=== PATIENT | female | born 1950 | race Caucasian/White ===

== ENCOUNTER 2022-07-29 17:30 | Emergency (ER) | payer MEDICARE, SELFPAY ==
--- NOTE | ~2022-07-29 | CT_ITS ---
EXAMINATION: CT lumbar spine wo con DATE: 07/29/2022 19:02 INDICATION: CHRONIC LOWER BACK PAIN; NKI. HX SURGERY. . TECHNIQUE: Computed tomography (CT) of the lumbar spine was performed without intravenous contrast. A utomated exposure control and iterative reconstruction technique were employed. The dose-length produ ct was 1086.56 mGy-cm. COMPARISON: None. FINDINGS: L4 laminectomy. Posterior fusion hardware extending from L3 through S1, without obvious com plication. Retained right pedicle screw in L5. Interbody devices at L3-4 and L5-S1, in good position. 5 nonrib-bearing lumbar-type vertebral bodies. Pedicles intact. Normal vertebral body alignment. Rosanne tebral body heights preserved. No severe neural foraminal narrowing. No definite central canal narrow ing, noting the canal is obscured by metal artifact at multiple levels. Multilevel degenerative disc disease. Multilevel facet arthropathy. Diverticulosis. Atherosclerotic calcifications. IMPRESSION: No acute fracture or traumatic malalignment in the lumbar spine. No hardware related complication. Reviewed, dictated and finalized at location K. IMPRESSION: No acute fracture or traumatic malalignment in the lumbar spine. No hardware re lated complication.
--- NOTE | ~2022-07-29 | XR_ITS ---
EXAM: XR knee RT 3V DATE: 07/29/2022 19:03 HISTORY: GENERALIZED RIGHT KNEE PAIN. NKI. . COMPARISON: None available. FINDINGS: Decreased mineralization. No fracture or dislocation. No lytic or blastic lesion. Moderate tricompartmental osteoarthritis. Prominent subchondral cysts in the patella. Quadriceps enthesopathy . No erosion or periosteal change. Soft tissues within normal limits. IMPRESSION: No acute osseous finding in the right knee. Reviewed, dictated and finalized at location K.
--- NOTE | ~2022-07-29 | CT_ITS ---
EXAMINATION: CT brain wo con DATE: 07/29/2022 19:02 INDICATION: GENERALIZED WEAKNESS WITH HEADACHE. WEAKNESS SEVERAL WKS . TECHNIQUE: Computed tomography (CT) of the head was performed without intravenous contrast. The mA wa s adjusted according to patient size. Iterative reconstruction technique was employed. The dose-lengt h product was 605.33 mGy-cm. COMPARISON: None. FINDINGS: No acute intracranial hemorrhage or extra-axial fluid collection. No hydrocephalus, mass, or herniation. No acute ischemic infarct. Unremarkable dural venous sinus attenuation. No acute osseous abnormality. Trace right mastoid fluid. Right maxillary mucosal thickening, the remaining aerated spaces are clear . Mild atrophy and chronic white matter change. Atherosclerotic intracranial calcification. Bilateral l ens replacements. IMPRESSION: No acute intracranial process. Reviewed, dictated and finalized at location K.
[2022-07-29 17:30] VITALS: BP 131/66; PULSE 63; RESP 16; TEMP 36.3; O2SAT 100
--- NOTE | 2022-07-29 17:36 | ED.WEAKNESS ---
HPI - Weakness General Chief complaint: Weakness Stated complaint: weakness Time Seen by Provider: 07/29/22 17:34 Source: patient Mode of arrival: EMS Limitations: no limitations History of Present Illness HPI Narrative: 71-year-old female, smoker with a history of dementia, bipolar disorder was brought in by EMS from [facility] for a 1 month history of -- generalized weakness which has gotten worse over the past few days. -- right knee pain -- chronic low back pain. She had a prior history of back surgery. no recent trauma. No fever or chills. No chest pain or shortness of breath no nausea/ vomiting /abdominal pain or diarrhea. MD Complaint: generalized weakness Onset (ago): month(s) Duration: constant Location: generalized Migration: none Severity: mild Relieving factors: none Exacerbating factors: none Associated symptoms: denies other symptoms Related Data Home Medications Medication Instructions Recorded Confirmed amlodipine 10 mg tablet 10 mg PO DAILY 07/29/22 07/29/22 cholecalciferol (vitamin D3) 25 25 mcg PO DAILY 07/29/22 07/29/22 mcg (1,000 unit) capsule (Vitamin D3) divalproex 500 mg tablet,extended 500 mg PO DAILY 07/29/22 07/29/22 release 24 hr donepezil 5 mg tablet 5 mg PO HS 07/29/22 07/29/22 escitalopram oxalate 10 mg tablet 10 mg PO DAILY 07/29/22 07/29/22 memantine 5 mg tablet 5 mg PO QA 07/29/22 07/29/22 risperidone 1 mg tablet 1 mg PO DAILY 07/29/22 07/29/22 risperidone 2 mg tablet 2 mg PO HS 07/29/22 07/29/22 Allergies Allergy/AdvReac Type Severity Reaction Status Date / Time codeine Allergy Unknown Verified 07/29/22 17:37 prednisone Allergy Unknown Verified 07/29/22 17:37 Sulfa (Sulfonamide Allergy Unknown Verified 07/29/22 17:37 Antibiotics) tetracycline Allergy Unknown Verified 07/29/22 17:37 Review of Systems Review of Systems: All systems reviewed & are unremarkable except as noted in HPI and below Constitutional: Constitutional: Reports as per HPI and Reports no additional constitutional complaints Eyes: Eyes: Reports as per HPI and Reports no additional eye complaints ENT: Reports system reviewed and no additional complaints, except as documented and Reports as per HPI Cardiovascular: Cardiovascular: Reports as per HPI and Reports no additional cardiovascular complaints Respiratory: Respiratory: Reports as per HPI and Reports no additional respiratory complaints Gastrointestinal: Gastrointestinal: Reports as per HPI and Reports no additional gastrointestinal complaints Genitourinary: Genitourinary: Reports no additional female genitourinary complaints and Reports as per HPI Musculoskeletal: Musculoskeletal: Reports no additional musculoskeletal complaints and Reports as per HPI Comments: Chronic low back pain and right knee pain. No history of recent trauma. 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 Integumentary/Breasts: Skin/Breast: Reports system reviewed and no additional complaints, except as docu and Reports as per HPI Neurologic: Reports system reviewed and no additional complaints, except as documented and Reports as per HPI Psychiatric: Psychiatric: Reports no additional psychiatric complaints and Reports as per HPI Endocrine: Endocrine: Reports no additional endocrine complaints and Reports as per HPI Hematologic/Lymphatic: Hematologic/Lymphatic: Reports no additional hematologic/lymphatic complaints and Reports as per HPI Allergic/Immunologic: Allergic/Immunologic: Reports no additional allergic/immunologic complaints and Reports as per HPI [facility] Past Medical History Medical History Bipolar 1 disorder Dementia Social History Social History Social History: smoker Exam Const: General: no acute distress Orientation/consciousness: patient oriented x3 Limitations: no limitations HENMT: Head: n
--- NOTE | 2022-07-29 17:50 | ECG_ITS ---
Measurements Intervals [place] Rate: 60 P: 48 MI: 184 QRS: -25 QRSD: 79 T: 11 QT: 382 QTc: 384 Interpretive Statements SINUS RHYTHM POSSIBLE ANTERIOR MYOCARDIAL INFARCTION , PROBABLY OLD [30 ms Q WAVE IN V3/V4, OR R < 0.2 mV IN V4] INFERIOR MYOCARDIAL INFARCTION , PROBABLY OLD [40+ ms Q WAVE AND/OR ST/T ABNORMALITY IN II/aVF] ABNORMAL ECG NO PREVIOUS ECG AVAILABLE FOR COMPARISON Electronically Signed On 07-30-2022 9:00:11 CDT by Jose La M.D.
[2022-07-29 18:05] LABS: Basophils Absolute Auto 0.01 K/mm3 (0.00-0.10); Basophils Percent Auto 0.2 % (0.0-1.0); Eosinophils Percent Auto 1.9 % (1.0-6.0); Hematocrit 40.1 % (35.0-42.0); Hemoglobin 13.6 g/dL (11.7-13.8); Immature Granulocyte Absolute 0.02 K/mm3 (0.00-0.00); Immature Granulocyte Percent A 0.4 % (0.0-0.0); Lymphocytes Percent Auto 18.8 % (18.0-42.0); Mean Corpuscular HGB Conc 33.9 g/dL (32.0-36.0); Mean Corpuscular Hemoglobin 32.2 pg (27.0-31.0); Mean Corpuscular Volume 94.8 fL (78.0-102.0); Mean Platelet Volume 10.1 fl (9.2-11.8); Monocytes Absolute Auto 0.55 K/mm3 (0.10-0.90); Monocytes Percent Auto 10.4 % (2.0-11.0); Neutrophils Absolute Auto 3.6 K/mm3 (1.7-7.2); Neutrophils Percent Auto 68.3 % (50.0-70.0); Platelet Count Result 181 K/mm3 (150-420); Red Blood Count 4.23 M/mm3 (4.20-5.40); Red Cell Distribution Width 12.6 % (11.6-14.4); White Blood Count 5.3 K/mm3 (4.8-10.8)
[2022-07-29 18:06] LABS: Appearance Urine Clear (Clear); Bilirubin Urine Negative (Negative); Blood Urine Negative (Negative); Glucose Urine UA Negative (Negative); Ketones Urine Negative (Negative); Leukocyte Esterase Ur 1+ LEU/UL (Negative); Nitrate Urine Negative (Negative); Protein Urine Negative (Negative); Urobilinogen Urine 0.2 mg/dL (0.2-1.0)
[2022-07-29 18:11] LABS: Color Urine Light Yellow (Yellow)
[2022-07-29 18:12] VITALS: BP 117/70; PULSE 65; RESP 18; O2SAT 97
[2022-07-29 18:12] LABS: Add Urine Microscopic? YES; Bacteria Urine Trace /hpf; RBC Urine 0-2 /hpf (0-2); Squamous Epithelial Cell Urine Rare /hpf (Few); WBC Urine 0-3 /hpf (0-3)
[2022-07-29 18:32] LABS: Alanine Aminotransferase 13 U/L (14-59); Albumin Level 2.8 g/dL (3.4-5.0); Alkaline Phosphatase 72 U/L (46-116); Anion Gap 5 mmol/L (8-16); Aspartate Amino Transferase 13 U/L (15-37); Bilirubin,Total 0.1 mg/dL (0.00-1.00); Blood Urea Nitrogen 15 mg/dL (7-18); Calcium 9.3 mg/dL (8.5-10.1); Carbon Dioxide 30 mmol/L (21-32); Chloride 108 mmol/L (98-108); Estimated CRCL calculation 45 ml/min; Estimated Glomerular Filt Rate > 60; Glucose 136 mg/dL (70-99); Lipase 53 U/L (16-77); Osmolality Calculated 298 mOsm/kg (285-295); Potassium 3.7 mmol/L (3.5-5.1); Sodium 143 mmol/L (136-145); Total Protein 6.5 g/dL (6.4-8.2)
[2022-07-29 18:33] LABS: Troponin I 6.2 ng/L (0.00-60.4)
--- NOTE | 2022-07-29 20:01 | PC.NURSE ---
Dr Peña in to speak c pt. about test results and POC for d/c back to [facility][Note 3] care. 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
[2022-07-29 20:04] VITALS: BP 119/64; PULSE 74; RESP 18; TEMP 36.6; O2SAT 96
== END 2022-07-29 20:16 | disposition home or self-care (01) ==
PROVIDERS: Emergency Provider Internal Medicine Critical Care Medicine
DX: M54.50 Low back pain, unspecified (principal); M25.561 Pain in right knee; R53.1 Weakness; F03.90 Unspecified dementia, unspecified severity, without behavioral disturbance, psychotic disturbance, mood disturbance, and anxiety; F17.200 Nicotine dependence, unspecified, uncomplicated
CPT/HCPCS: 36415; 70450; 72131; 73562; 80053; 81001; 83690; 84443; 84484; 85025; 87086; 93005; 99284

== ENCOUNTER 2022-08-13 12:51 | Inpatient (IN) | payer MEDICARE, SELFPAY ==
[2022-08-13] VITALS (41 sets, daily range): BP systolic 91–109; BP diastolic 47–68; PULSE 48–94; RESP 13–26; TEMP 35.9–37.2; O2SAT 86–96; BMI 23.6
--- NOTE | ~2022-08-13 | XR_ITS ---
XR chest 1V portable 08/13/2022 13:18 Indication: Dyspnea Procedure: AP portable chest Comparison: No prior studies for comparison. Findings: Heart size normal. No focal air space disease, pulmonary edema, pleural effusion or suspect ed pneumothorax. There is right basilar atelectasis. Impression: 1: Right basilar atelectasis. Reviewed, dictated and finalized at location L. Impression: 1: Right basilar atelectasis.
--- NOTE | ~2022-08-13 | US_ITS ---
EXAMINATION:US venous doppler LE BI INDICATION:Pulmonary embolism TECHNIQUE: Multiple grayscale, color flow and Doppler images of the bilateral lower extremity deep ve nous systems were obtained and reviewed. COMPARISON:CT angio chest dated 08/13/2022 FINDINGS: The common femoral, superficial femoral and popliteal veins demonstrate normal respiratory variation, augmentation and compressibility. Color flow is also seen within the posterior tibial, pe roneal, greater saphenous and profunda veins. IMPRESSION: 1: No lower extremity deep venous thrombosis. Reviewed, dictated and finalized at location B.
--- NOTE | ~2022-08-13 | CT_ITS ---
EXAMINATION: CTA chest PE protocol DATE: 08/13/2022 14:39 INDICATION: Dyspnea. TECHNIQUE: Computed tomography angiography (CTA) of the chest was performed with 100 mL Omnipaque-350 intravenous contrast timed to evaluate the pulmonary arteries. Coronal maximum intensity projection 3D-reconstructions were created by the technologist. Automated exposure control and iterative reconst ruction technique were employed. The dose-length product was 483.75 mGy-cm. COMPARISON: Chest single view 08/13/2022 FINDINGS: There are airspace opacities with air bronchograms in the lower lobes, consistent with pneu monia. There is mild atelectasis in right middle lobe. No pleural effusion. The heart size is normal. No pericardial effusion. There is a calcification in the pancreas. There is a pulmonary embolus in t he apical segment right upper lobe. There is an embolus in anterobasal segment right lower lobe. Ther e is an embolus in apicoposterior segment left upper lobe. There is moderate thoracic spondylosis. IMPRESSION: 1. Bilateral acute pulmonary emboli. I called this result to Dr. Fowler. 2. Bilateral lower lobe pneumonia. Reviewed, dictated and finalized at location E.
--- NOTE | 2022-08-13 13:04 | ECG_ITS ---
Measurements Intervals [place] Rate: 71 P: 54 CO: 162 QRS: -12 QRSD: 89 T: 7 QT: 364 QTc: 398 Interpretive Statements SINUS RHYTHM INFERIOR INFARCT, AGE INDETERMINATE BASELINE ARTIFACT- I, II, III, AVR, AVL, AVF ABNORMAL ECG COMPARED TO ECG 07/29/2022 18:08:41 NO SIGNIFICANT CHANGES Electronically Signed On 08-13-2022 13:49:37 CDT by Ozzy Porras D.O.
[2022-08-13] MEDS: IPRATROPIUM 0.5 MG/ALBUTEROL SULFATE 2.5 MG AMPUL.NEB 3 ML INHALATION (13:16)
[2022-08-13] MEDS: ACETAMINOPHEN 500 MG TABLET 1000 MG PO (13:18)
[2022-08-13] MEDS: SODIUM CHLORIDE 0.9% IV 1,000 ML 999 ML IV CONT ×2 (13:20→15:06)
[2022-08-13 13:30] LABS: Base Excess ABG 0.7 mmol/L (0-2); HCO3 ABG 22.7 mmol/L (23-29); Oxygen Content ABG 16.6 %vol (16.0-22.0); Oxygen Saturation ABG 93.3 % (95-97); Oxyhemoglobin 92.2 % (94-100); PCO2 ABG 28.9 mmHg (35-45); PO2 ABG 63.4 mmHg (75-85); Total Hemoglobin 12.8 g/dL (12.0-18.0); pH ABG 7.51 (7.35-7.45)
[2022-08-13 13:32] LABS: Device NASAL CANNULA; Modified Allen's Test Pass; Site Drawn RIGHT RADIAL
[2022-08-13 13:35] LABS: Basophils Absolute Auto 0.02 K/mm3 (0.00-0.10); Basophils Percent Auto 0.2 % (0.0-1.0); Hematocrit 33.3 % (35.0-42.0); Hemoglobin 11.5 g/dL (11.7-13.8); Immature Granulocyte Absolute 0.05 K/mm3 (0.00-0.00); Immature Granulocyte Percent A 0.4 % (0.0-0.0); Lymphocytes Absolute Auto 0.46 K/mm3 (1.10-4.50); Lymphocytes Percent Auto 3.7 % (18.0-42.0); Mean Corpuscular HGB Conc 34.5 g/dL (32.0-36.0); Mean Corpuscular Hemoglobin 32.5 pg (27.0-31.0); Mean Corpuscular Volume 94.1 fL (78.0-102.0); Mean Platelet Volume 9.9 fl (9.2-11.8); Monocytes Absolute Auto 1.21 K/mm3 (0.10-0.90); Monocytes Percent Auto 9.8 % (2.0-11.0); Neutrophils Absolute Auto 10.6 K/mm3 (1.7-7.2); Neutrophils Percent Auto 85.9 % (50.0-70.0); Platelet Count Result 187 K/mm3 (150-420); Red Blood Count 3.54 M/mm3 (4.20-5.40); Red Cell Distribution Width 12.7 % (11.6-14.4); White Blood Count 12.3 K/mm3 (4.8-10.8)
[2022-08-13 13:50] LABS: INR 1.1; Prothrombin Time 12.2 Seconds (9.50-12.10)
[2022-08-13 13:53] LABS: D Dimer 1.59 mg/L (0.19-0.50)
[2022-08-13 14:02] LABS: Alanine Aminotransferase 10 U/L (14-59); Albumin Level 2.4 g/dL (3.4-5.0); Alkaline Phosphatase 80 U/L (46-116); Anion Gap 12 mmol/L (8-16); Aspartate Amino Transferase < 10 U/L (15-37); Bilirubin,Total 0.4 mg/dL (0.00-1.00); Blood Urea Nitrogen 18 mg/dL (7-18); Calcium 9.2 mg/dL (8.5-10.1); Carbon Dioxide 24 mmol/L (21-32); Chloride 103 mmol/L (98-108); Estimated CRCL calculation 34 ml/min; Estimated Glomerular Filt Rate 46; Glucose 112 mg/dL (70-99); Magnesium 1.7 mg/dL (1.8-2.4); NT Pro B Type Natriuretic Pept 366 pg/mL (0-125); Osmolality Calculated 290 mOsm/kg (285-295); Potassium 3.8 mmol/L (3.5-5.1); Sodium 139 mmol/L (136-145); Total Protein 6.7 g/dL (6.4-8.2); Troponin I 12.5 ng/L (0.00-60.4)
[2022-08-13 14:26] LABS: Influenza A QL RT-PCR Negative (Negative); Influenza B QL RT-PCR Negative (Negative); SARS-CoV-2 RNA PCR Negative (Negative)
[2022-08-13 14:30] LABS: RSV RNA, RT-PCR Negative (Negative)
--- NOTE | 2022-08-13 14:58 | ED.SOB ---
HPI - SOB/Dyspnea General Chief Complaint: Shortness of Breath/Dyspnea Stated Complaint: weakness past 4 days Time Seen by Provider: 08/13/22 13:02 Source: patient and EMS Mode of arrival: EMS Limitations: physical limitation and dementia History of Present Illness HPI Narrative: this is a 71-year-old female from [facility] with a history of dementia hypertension depression that presents via EMS with some increased shortness of breath that started earlier today, per EMS her O2 sats were in the upper 80s around 88 and that was with 3L of oxygen, the patient does not require oxygen at the facility, currently the patient is mildly short of breath but there is no cough no fever chills no chest pain or chest pressure, the patient has chronic back pain. Otherwise there is no fever chills no nausea vomiting no abdominal pain. MD elicited complaint: shortness of breath Onset (ago): hour(s) Severity: moderate Exacerbating factors: exertion Related Data Home Medications Medication Instructions Recorded Confirmed amlodipine 10 mg tablet 10 mg PO DAILY 07/29/22 08/13/22 cholecalciferol (vitamin D3) 25 25 mcg PO DAILY 07/29/22 08/13/22 mcg (1,000 unit) capsule (Vitamin D3) divalproex 500 mg tablet,extended 500 mg PO DAILY 07/29/22 08/13/22 release 24 hr donepezil 5 mg tablet 5 mg PO HS 07/29/22 08/13/22 escitalopram oxalate 10 mg tablet 10 mg PO DAILY 07/29/22 08/13/22 memantine 5 mg tablet 5 mg PO QA 07/29/22 08/13/22 risperidone 1 mg tablet 1 mg PO DAILY 07/29/22 08/13/22 risperidone 2 mg tablet 2 mg PO HS 07/29/22 08/13/22 Allergies Allergy/AdvReac Type Severity Reaction Status Date / Time codeine Allergy Unknown Verified 07/29/22 17:37 prednisone Allergy Unknown Verified 07/29/22 17:37 Sulfa (Sulfonamide Allergy Unknown Verified 07/29/22 17:37 Antibiotics) tetracycline Allergy Unknown Verified 07/29/22 17:37 Review of Systems Review of Systems: All systems reviewed & are unremarkable except as noted in HPI and below PMFSH Past Medical History Medical History Bipolar 1 disorder Dementia Social History Social History Social History: smoker Exam Const: General: ill appearing Nutritional Appearance: well nourished Limitations: physical limitations HENMT: Head: normal to inspection Eyes: Conjunctivae: conjunctivae normal Pupils: Equal, round and reactive pupils present EOM: EOMs intact bilaterally Direct Ophthalmoscopy: no photophobia Neck: Neck: normal visual inspection Chest: Chest palpation & inspection: normal inspection of the chest Resp: Effort & Inspection: normal respiratory effort Cardio: Rate: regular rate Rhythm: regular rhythm GI: GI Palp: Yes Soft to palpation : General: Yes bladder normal to palpation Urinary Catheter: Urinary Catheter: patent and draining Skin: General skin exam: normal color Rashes: no rashes Wounds: no wounds Neuro: General: moves all extremities and no focal motor deficits Cranial nerves: Yes Nystagmus not present Speech: normal speech Extrem: General: normal to inspection Psych: Attitude: cooperative Course Course Emergency Course: Patient pressure at around 100 to 107 systolic had elevated D-dimer and CTA performed shows that she has pulmonary embolism along with pneumonia. The patient did receive a L of normal saline and is currently receiving her 2nd L of normal saline, patient was started on Eliquis some initial therapeutic dose of 10mg p.o. and also IV Levaquin for pneumonia. Her white blood cell count is 12.3 BNP is 366 and the CTA report was called to me by radiologist at [facility]. Patient otherwise is comfortable sats around 92 on 6L of oxygen. Vital Signs Vital signs: Vital Signs Temperature 37.2 C 08/13/22 12:50 Pulse Rate 79 08/13/22 12:50 Respiratory Rate 24 H 08/13/22 12:50
[2022-08-13] MEDS: APIXABAN 2.5 MG TABLET 10 MG PO (15:04)
[2022-08-13] MEDS: levoFLOXacin 500 MG/D5W 100 ML 500 MG/100 ML BAG 100 MG IVPB (15:08)
--- NOTE | 2022-08-13 15:55 | ADMGEN ---
This patient, Daphnie MARIE, was admitted to 2nd Floor Room 207-2. Patient/family oriented to hospital policies and general routines including ID bracelet, bed and alarms, visiting hours, pain management, procedures, bathroom and other care routines, personal items, smoking policy, room service/diet, and visiting hours. Information on how to activate the Rapid Response Team has been discussed. Patient/Family are encouraged to report perceived risks to care and to ask questions if they do not understand what they are told or what they should do.
[2022-08-13] MEDS: DONEPEZIL HCL 5 MG TABLET PO (20:10)
[2022-08-13] MEDS: risperiDONE 1 MG TABLET 2 MG PO (20:10)
[2022-08-13] MEDS: ACETAMINOPHEN 325 MG TABLET 650 MG PO (20:10)
[2022-08-14] VITALS (7 sets, daily range): BP systolic 102–120; BP diastolic 52–57; PULSE 41–96; RESP 16–17; TEMP 35.9–36.3; O2SAT 92–95
[2022-08-14 05:27] LABS: Basophils Absolute Auto 0.01 K/mm3 (0.00-0.10); Basophils Percent Auto 0.1 % (0.0-1.0); Hematocrit 33.3 % (35.0-42.0); Hemoglobin 10.9 g/dL (11.7-13.8); Immature Granulocyte Absolute 0.07 K/mm3 (0.00-0.00); Immature Granulocyte Percent A 0.7 % (0.0-0.0); Lymphocytes Absolute Auto 0.87 K/mm3 (1.10-4.50); Lymphocytes Percent Auto 8.3 % (18.0-42.0); Mean Corpuscular HGB Conc 32.7 g/dL (32.0-36.0); Mean Corpuscular Hemoglobin 31.5 pg (27.0-31.0); Mean Corpuscular Volume 96.2 fL (78.0-102.0); Mean Platelet Volume 9.9 fl (9.2-11.8); Monocytes Absolute Auto 0.93 K/mm3 (0.10-0.90); Monocytes Percent Auto 8.9 % (2.0-11.0); Neutrophils Absolute Auto 8.5 K/mm3 (1.7-7.2); Platelet Count Result 173 K/mm3 (150-420); Red Blood Count 3.46 M/mm3 (4.20-5.40); Red Cell Distribution Width 13.1 % (11.6-14.4); White Blood Count 10.4 K/mm3 (4.8-10.8)
[2022-08-14 05:45] LABS: Anion Gap 8 mmol/L (8-16); Blood Urea Nitrogen 14 mg/dL (7-18); Calcium 9.3 mg/dL (8.5-10.1); Carbon Dioxide 27 mmol/L (21-32); Chloride 108 mmol/L (98-108); Estimated CRCL calculation 42 ml/min; Estimated Glomerular Filt Rate 60; Glucose 86 mg/dL (70-99); Osmolality Calculated 295 mOsm/kg (285-295); Potassium 3.5 mmol/L (3.5-5.1); Sodium 143 mmol/L (136-145)
[2022-08-14 09:30] LABS: Appearance Urine Clear (Clear); Bilirubin Urine Negative (Negative); Blood Urine Negative (Negative); Color Urine Light Yellow (Yellow); Glucose Urine UA Negative (Negative); Ketones Urine Negative (Negative); Leukocyte Esterase Ur 1+ LEU/UL (Negative); Nitrate Urine Negative (Negative); Protein Urine Negative (Negative); Specific Grav Ur <= 1.005 (1.010-1.020); Urobilinogen Urine 0.2 mg/dL (0.2-1.0); pH Urine 6.5 (5.0-8.0)
[2022-08-14] MEDS: SACCHAROMYCES BOULARDII 250 MG CAPSULE PO ×2 (09:31→16:12)
[2022-08-14] MEDS: risperiDONE 1 MG TABLET PO (09:31)
[2022-08-14] MEDS: ESCITALOPRAM OXALATE 10 MG TABLET PO (09:32)
[2022-08-14] MEDS: amLODIPine BESYLATE 5 MG TABLET 10 MG PO (09:32)
[2022-08-14] MEDS: DIVALPROEX SODIUM ER 500 MG TAB.24H PO (09:32)
[2022-08-14] MEDS: CHOLECALCIFEROL 1,000 UNITS TABLET 1000 UNITS PO (09:32)
[2022-08-14] MEDS: MEMANTINE 5 MG TABLET PO (09:33)
[2022-08-14] MEDS: APIXABAN 2.5 MG TABLET 10 MG PO ×2 (09:33→20:24)
[2022-08-14 09:36] LABS: Amphetamine Screen Urine Negative (Negative); Barbiturate Screen Urine Negative (Negative); Benzodiazepines Screen Urine Negative (Negative); Cannabinoid Screen Urine Negative (Negative); Cocaine Screen Urine Negative (Negative); Methadone Screen Urine Negative (Negative); Opiate Screen Urine Negative (Negative); Phencyclidine Screen Urine Negative (Negative)
[2022-08-14 09:36] LABS: Add Urine Microscopic? YES; Bacteria Urine 1+ /hpf; RBC Urine None seen /hpf (0-2); Squamous Epithelial Cell Urine Few /hpf (Few)
--- NOTE | 2022-08-14 09:55 | PM.IMHP ---
H&P: HPI History of Present Illness Date/Time: 08/14/22 09:55 Chief Complaint: Dyspnea Narrative: This 71 year old female patient with PMH of dementia, HTN, and depression was admitted to the inpatient unit at [facility] after presenting to the ER via EMS with dyspnea, and requiring Oxygen as high as 6L. Pt. endorses a three week history of generally not feeling well and today she felt worse. She was found with her sats in the upper 80s. She denies any chills or sweats and no CP, N/V/D/lightheadedness, headache or dizziness. Review of Systems Review of Systems: All systems reviewed & are unremarkable except as noted in HPI and below PMFSH Past Medical History Medical History Bipolar 1 disorder Dementia Social History Social History Social History: smoker Meds Home Medications and Allergies Home Medications Medication Instructions Recorded Confirmed Type amlodipine 10 mg tablet 10 mg PO DAILY 07/29/22 08/13/22 History cholecalciferol (vitamin D3) 25 25 mcg PO DAILY 07/29/22 08/13/22 History mcg (1,000 unit) capsule (Vitamin D3) divalproex 500 mg tablet,extended 500 mg PO DAILY 07/29/22 08/13/22 History release 24 hr donepezil 5 mg tablet 5 mg PO HS 07/29/22 08/13/22 History escitalopram oxalate 10 mg tablet 10 mg PO DAILY 07/29/22 08/13/22 History memantine 5 mg tablet 5 mg PO QAM 07/29/22 08/13/22 History risperidone 1 mg tablet 1 mg PO DAILY 07/29/22 08/13/22 History risperidone 2 mg tablet 2 mg PO HS 07/29/22 08/13/22 History Allergies Allergy/AdvReac Type Severity Reaction Status Date / Time codeine Allergy Unknown Verified 07/29/22 17:37 prednisone Allergy Unknown Verified 07/29/22 17:37 Sulfa (Sulfonamide Allergy Unknown Verified 07/29/22 17:37 Antibiotics) tetracycline Allergy Unknown Verified 07/29/22 17:37 Vital Signs Vital Signs - 24 hr 08/13/22 12:50 08/13/22 13:17 08/13/22 13:28 Temperature 99.0 F Pulse Rate 79 71 81 Respiratory Rate 24 H 20 20 Blood Pressure 107/56 L Pulse Oximetry 87 L 91 91 Oxygen Delivery Nasal Cannula Oxygen Flow Rate 6 6 08/13/22 13:03 08/13/22 13:15 08/13/22 13:16 Temperature Pulse Rate 81 80 Respiratory Rate 18 26 H Blood Pressure 106/48 L 106/64 Pulse Oximetry 89 L 92 91 Oxygen Delivery Oxygen Flow Rate 08/13/22 12:50 08/13/22 13:10 08/13/22 13:57 Temperature 99 F Pulse Rate 83 78 70 Respiratory Rate 18 Blood Pressure 107/56 L Pulse Oximetry 86 L Oxygen Delivery Nasal Cannula Oxygen Flow Rate 3 08/13/22 13:10 08/13/22 13:17 08/13/22 13:30 Temperature Pulse Rate 71 73 Respiratory Rate 22 H 21 H Blood Pressure Pulse Oximetry 90 91 96 Oxygen Delivery Nasal Cannula Oxygen Flow Rate 6 08/13/22 13:36 08/13/22 13:45 08/13/22 13:46 Temperature 98.8 F Pulse Rate 72 70 67 Respiratory Rate 21 H 22 H 20 Blood Pressure 108/50 L 109/59 L 102/51 L Pulse Oximetry 95 95 94 Oxygen Delivery Oxygen Flow Rate 08/13/22 13:47 08/13/22 14:00 08/13/22 14:01 Temperature Pulse Rate 68 70 69 Respiratory Rate 22 H 23 H 23 H Blood Pressure 105/68 Pulse Oximetry 94 90 90 Oxygen Delivery Oxygen Flow Rate 08/13/22 14:02 08/13/22 14:10 08/13/22 14:15 Temperature Pulse Rate 73 94 72 Respiratory Rate 18 16 20 Blood Pressure 105/68 Pulse Oximetry 90 90 92 Oxygen Delivery Oxygen Flow Rate 08/13/22 14:16 08/13/22 14:36 08/13/22 14:39 Temperature Pulse Rate 77 65 64 Respiratory Rate 19 20 18 Blood Pressure 101/62 100/51 L Pulse Oximetry 91 92 93 Oxygen Delivery Oxygen Flow Rate 08/13/22 14:40 08/13/22 14:45 08/13/22 14:46 Temperature Pulse Rate 65 64 62 Respiratory Rate 13 17 18 Blood Pressure 98/47 L Pulse Oximetry 92 90 91 Oxygen Delivery Oxygen Flow Rate 08/13/22 14:55 0
[2022-08-14] MEDS: levoFLOXacin 250 MG/D5W 50 ML 250 MG/50 ML BAG 50 MG IVPB (16:10)
[2022-08-14] MEDS: ACETAMINOPHEN 325 MG TABLET 650 MG PO (16:21)
[2022-08-14] MEDS: DONEPEZIL HCL 5 MG TABLET PO (20:24)
[2022-08-14] MEDS: risperiDONE 1 MG TABLET 2 MG PO (20:25)
[2022-08-15] VITALS: BP 111/61; PULSE 41; PULSE 54; RESP 18; TEMP 36.6; O2SAT 92
[2022-08-15 03:25] VITALS: BP 110/60; PULSE 45; RESP 18; TEMP 36.6; O2SAT 93
[2022-08-15 05:12] LABS: Basophils Absolute Auto 0.02 K/mm3 (0.00-0.10); Basophils Percent Auto 0.3 % (0.0-1.0); Eosinophils Absolute Auto 0.03 K/mm3 (0.02-0.50); Eosinophils Percent Auto 0.4 % (1.0-6.0); Hematocrit 33.4 % (35.0-42.0); Immature Granulocyte Absolute 0.05 K/mm3 (0.00-0.00); Immature Granulocyte Percent A 0.7 % (0.0-0.0); Lymphocytes Absolute Auto 1.16 K/mm3 (1.10-4.50); Lymphocytes Percent Auto 15.3 % (18.0-42.0); Mean Corpuscular HGB Conc 32.9 g/dL (32.0-36.0); Mean Corpuscular Hemoglobin 31.6 pg (27.0-31.0); Mean Platelet Volume 9.8 fl (9.2-11.8); Monocytes Absolute Auto 0.47 K/mm3 (0.10-0.90); Monocytes Percent Auto 6.2 % (2.0-11.0); Neutrophils Absolute Auto 5.8 K/mm3 (1.7-7.2); Neutrophils Percent Auto 77.1 % (50.0-70.0); Platelet Count Result 205 K/mm3 (150-420); Red Blood Count 3.48 M/mm3 (4.20-5.40); Red Cell Distribution Width 13.1 % (11.6-14.4); White Blood Count 7.6 K/mm3 (4.8-10.8)
[2022-08-15 05:29] LABS: Alanine Aminotransferase 10 U/L (14-59); Albumin Level 1.9 g/dL (3.4-5.0); Alkaline Phosphatase 71 U/L (46-116); Anion Gap 10 mmol/L (8-16); Aspartate Amino Transferase < 10 U/L (15-37); Bilirubin,Total 0.1 mg/dL (0.00-1.00); Blood Urea Nitrogen 14 mg/dL (7-18); Calcium 8.8 mg/dL (8.5-10.1); Carbon Dioxide 28 mmol/L (21-32); Chloride 104 mmol/L (98-108); Estimated CRCL calculation 46 ml/min; Estimated Glomerular Filt Rate > 60; Glucose 79 mg/dL (70-99); Osmolality Calculated 293 mOsm/kg (285-295); Potassium 3.6 mmol/L (3.5-5.1); Sodium 142 mmol/L (136-145); Total Protein 6.1 g/dL (6.4-8.2)
[2022-08-15 06:03] VITALS: O2SAT 92
[2022-08-15 08:00] VITALS: BP 120/55; PULSE 58; PULSE 68; RESP 16; TEMP 35.8; O2SAT 93
[2022-08-15] MEDS: CHOLECALCIFEROL 1,000 UNITS TABLET 1000 UNITS PO (08:35)
[2022-08-15] MEDS: APIXABAN 2.5 MG TABLET 10 MG PO ×2 (08:35→20:33)
[2022-08-15] MEDS: SACCHAROMYCES BOULARDII 250 MG CAPSULE PO ×2 (08:35→17:08)
[2022-08-15] MEDS: MEMANTINE 5 MG TABLET PO (08:35)
[2022-08-15] MEDS: amLODIPine BESYLATE 5 MG TABLET 10 MG PO (08:36)
[2022-08-15] MEDS: DIVALPROEX SODIUM ER 500 MG TAB.24H PO (08:36)
[2022-08-15] MEDS: ESCITALOPRAM OXALATE 10 MG TABLET PO (08:37)
[2022-08-15] MEDS: risperiDONE 1 MG TABLET PO (08:37)
--- NOTE | 2022-08-15 09:08 | PC.NURSE ---
Risk Advisor discontinued O2 via n/c at 1 L. Patient still has SPO2 at 94% on room air after 30 minutes without O2. Will continue to monitor.
[2022-08-15 12:00] VITALS: BP 105/52; PULSE 58; PULSE 60; RESP 16; TEMP 35.9; O2SAT 93
--- NOTE | 2022-08-15 14:30 | PC.NURSE ---
SPO2 remains above 90 on room air, even when patient is at rest.
[2022-08-15] MEDS: levoFLOXacin 250 MG/D5W 50 ML 250 MG/50 ML BAG 50 MG IVPB (14:34)
--- NOTE | 2022-08-15 14:48 | PC.NURSE ---
Discontinued IV fluids per [employer] ADMINISTRATOR orders.
--- NOTE | 2022-08-15 15:05 | WPDPN ---
Progress Note: A&P Assessment and Plan (1) Pulmonary embolism: Qualifiers: Acute cor pulmonale presence: without acute cor pulmonale Chronicity: acute Pulmonary embolism type: unspecified Qualified Code(s): I26.99 - Other pulmonary embolism without acute cor pulmonale Code(s): I26.99 - Other pulmonary embolism without acute cor pulmonale Status: Acute Assessment and Plan: - Supplemental oxygen, wean as tolerated WEANed off of oxgen - Continue Eliquis at loading dose of 10 mg BID and transition to 5 mg BID - Venous dopplers negative . - ECHO pending may have to be completed as a outpatient - Monitor closely (2) Community acquired pneumonia: Qualifiers: Laterality: unspecified laterality Qualified Code(s): J18.9 - Pneumonia, unspecified organism Code(s): J18.9 - Pneumonia, unspecified organism Status: Acute Assessment and Plan: - Continue IV abx of Levaquin and Rocephin Q24 hrs. - Monitor SPO2 and provide Supplemental oxygen, weaning as tolerable. (3) Dementia: Code(s): F03.90 - Unspecified dementia, unspecified severity, without behavioral disturbance, psychotic disturbance, mood disturbance, and anxiety Status: Chronic Assessment and Plan: - COntinue Namenda and Aricept - Provide for safety. - Fall precautions - PT and OT patient has been cleared by physical therapy (4) Bipolar 1 disorder: Code(s): F31.9 - Bipolar disorder, unspecified Status: Chronic Assessment and Plan: - Continue Risperdal, Lexapro and Depakote Plan Plan for discharge in the morning back home. Subjective Date/time seen: 08/15/22 15:05 Interval history: Patient has been weaned off of oxygen and she is sitting in the bed. Patient denies any shortness of breath at this time and she is able to eat and drink without difficulties. She has remained afebrile. At this time WBC is within normal limits and her labs are looking good. Patient has been weaned today off of oxygen and we will plan for discharge in the morning. Exam Const: General: comfortable, no acute distress, ill appearing and well nourished Nutritional Appearance: well nourished Limitations: physical limitations Other: Sitting up in bed in no acute distress at this time. HENMT: Head: normal to inspection Face/Nose/Sinus: Normal nares present Eyes: General: appearance normal, both eyes and all related structures Conjunctivae: conjunctivae normal Pupils: Equal, round and reactive pupils present EOM: EOMs intact bilaterally Direct Ophthalmoscopy: no photophobia Neck: Neck: normal visual inspection, supple and no JVD Lymphatic: lymphadenopathy not noted Chest: Chest palpation & inspection: normal inspection of the chest Other: Not tender to palpation Resp: Effort & Inspection: normal respiratory effort Auscultation: crackles bilateral in the lower lung hannah Cardio: Rate: regular rate Rhythm: regular rhythm Heart sounds: no gallops, no murmurs and no rubs GI: Inspection: non-distended Auscultation: normal bowel sounds Skin: General skin exam: normal color, no rashes or lesions noted, No lesion and No rashes Lesions: no lesions noted Rashes: no rashes and no rashes noted Wounds: no wounds Neuro: General: moves all extremities and no focal motor deficits Cranial nerves: Yes Equal, round and reactive pupils present and Yes Nystagmus not present Speech: normal speech Motor exam (neuro): Abnormal motor strength present (Generalized, non-focal weakness) Sensory Exam: normal sensation Extrem: General: normal to inspection, no edema and pedal edema (trace) bilaterally Psych: Mental Status: mental status grossly normal (forgetful) Affect: normal affect Attitude: cooperative Objective Data Vital Signs Vital Signs: Vital Signs - 24 hr 08/14/22 16:00 08/14/22 16:00 08/14/22 20:00 Temperature 97.4 F L Pulse Rate 52 L 70 42 L Respiratory Rate 17 Blood
[2022-08-15 16:00] VITALS: BP 103/50; PULSE 52; RESP 16; TEMP 36.1; O2SAT 92
[2022-08-15] MEDS: ACETAMINOPHEN 325 MG TABLET 650 MG PO (20:33)
[2022-08-15] MEDS: DONEPEZIL HCL 5 MG TABLET PO (20:34)
[2022-08-15] MEDS: risperiDONE 1 MG TABLET 2 MG PO (20:35)
[2022-08-16] VITALS: BP 101/44; PULSE 50; RESP 16; TEMP 36.6; O2SAT 90
[2022-08-16 08:00] VITALS: BP 112/59; PULSE 52; RESP 16; TEMP 36.7; O2SAT 92; O2SAT 93
[2022-08-16] MEDS: ACETAMINOPHEN 325 MG TABLET 650 MG PO (08:13)
[2022-08-16] MEDS: SACCHAROMYCES BOULARDII 250 MG CAPSULE PO (08:14)
[2022-08-16] MEDS: DIVALPROEX SODIUM ER 500 MG TAB.24H PO (08:14)
[2022-08-16] MEDS: risperiDONE 1 MG TABLET PO (08:15)
[2022-08-16] MEDS: APIXABAN 2.5 MG TABLET 10 MG PO (08:15)
[2022-08-16] MEDS: amLODIPine BESYLATE 5 MG TABLET 10 MG PO (08:16)
[2022-08-16] MEDS: CHOLECALCIFEROL 1,000 UNITS TABLET 1000 UNITS PO (08:16)
[2022-08-16] MEDS: ESCITALOPRAM OXALATE 10 MG TABLET PO (08:17)
[2022-08-16] MEDS: MEMANTINE 5 MG TABLET PO (08:17)
--- NOTE | 2022-08-16 08:57 | PM.DS ---
DS: Admitting Diagnosis Discharge Date 08/16/2022 Admitting Diagnosis Pneumonia, Pulmonary Embolus DS: Discharge Diagnosis Discharge Diagnosis (1) Pulmonary embolism: Qualifiers: Acute cor pulmonale presence: without acute cor pulmonale Chronicity: acute Pulmonary embolism type: unspecified Qualified Code(s): I26.99 - Other pulmonary embolism without acute cor pulmonale Code(s): I26.99 - Other pulmonary embolism without acute cor pulmonale Status: Acute Assessment and Plan: - Supplemental oxygen, wean as tolerated WEANed off of oxgen - Continue Eliquis at loading dose of 10 mg BID and transition to 5 mg BID - Venous dopplers negative . - ECHO pending may have to be completed as a outpatient - Monitor closely (2) Community acquired pneumonia: Qualifiers: Laterality: unspecified laterality Qualified Code(s): J18.9 - Pneumonia, unspecified organism Code(s): J18.9 - Pneumonia, unspecified organism Status: Acute Assessment and Plan: - Continue IV abx of Levaquin and Rocephin Q24 hrs. - Monitor SPO2 and provide Supplemental oxygen, weaning as tolerable. (3) Dementia: Code(s): F03.90 - Unspecified dementia, unspecified severity, without behavioral disturbance, psychotic disturbance, mood disturbance, and anxiety Status: Chronic Assessment and Plan: - COntinue Namenda and Aricept - Provide for safety. - Fall precautions - PT and OT patient has been cleared by physical therapy (4) Bipolar 1 disorder: Code(s): F31.9 - Bipolar disorder, unspecified Status: Chronic Assessment and Plan: - Continue Risperdal, Lexapro and Depakote Plan Plan for discharge in the morning back home. DS: Summary Hospital Course Reason for hospitalization: Pulmonary Embolus, Pneumonia Hospital Course: This is a 71-year-old female from retirement that comes in with increased hypoxia requiring oxygen patient was found to have bilateral pneumonia as well as some pulmonary embolisms. Patient was started on oral Eliquis and some IV antibiotics of Rocephin and azithromycin as well as she was started on some breathing treatments and given some IV steroids. Patient was eventually weaned off of oxygen she continued the oral anticoagulation inhalers have been given as well as oral antibiotics was started patient has continued to improve where she is getting it in she is ambulating decreased shortness of breath noted patient states she is feeling better highly anticipating discharge. Patient has remained afebrile she is eating and drinking without difficulty although patient does have some dementia noted as this may have increased due to her acute pneumonia and blood clots at this time we will discharge patient back to retirement with oral medication which she should follow-up with the primary care provider within 5-7 days. Time Spent with Patient Time attestation: Total time spent providing and/or coordinating discharge services: Exam Const: General: comfortable, no acute distress, ill appearing and well nourished Nutritional Appearance: well nourished Limitations: physical limitations Other: Sitting up in bed in no acute distress at this time. HENMT: Head: normal to inspection Face/Nose/Sinus: Normal nares present Eyes: General: appearance normal, both eyes and all related structures Conjunctivae: conjunctivae normal Pupils: Equal, round and reactive pupils present EOM: EOMs intact bilaterally Direct Ophthalmoscopy: no photophobia Neck: Neck: normal visual inspection, supple and no JVD Lymphatic: lymphadenopathy not noted Chest: Chest palpation & inspection: normal inspection of the chest Other: Not tender to palpation Resp: Effort & Inspection: normal respiratory effort Auscultation: crackles bilateral in the lower lung hannah Other: noted on lower left side although pt does not take deep breaths even when requested Cardio:
--- NOTE | 2022-08-16 12:45 | PC.NURSE ---
Discharge instructions and medications given to Aylin from [facility]. Aylin voiced understanding. Patient left unit in w/c, accompanied by publicity writer. Patient left hospital property in privately owned vehicle. Personal belongings sent home with patient. IV access removed prior to discharge.
--- NOTE | 2022-08-17 12:44 | PC.NURSE ---
Nursing Home care staff states they received and understood the discharge instructions.
== END 2022-08-16 12:45 | DRG 175 ==
LOC: CHSED 15:04 → CHS2ND 15:30
PROVIDERS: Nurse Practitioner Adult Health; Nurse Practitioner Family; Admitting Provider Internal Medicine; Emergency Provider Emergency Medicine; PCP Pediatrics; Visit Provider Internal Medicine
DX: I26.99 Other pulmonary embolism without acute cor pulmonale (principal); J18.9 Pneumonia, unspecified organism; I10 Essential (primary) hypertension; F03.90 Unspecified dementia, unspecified severity, without behavioral disturbance, psychotic disturbance, mood disturbance, and anxiety; Z20.822 Contact with and (suspected) exposure to COVID-19; Z79.899 Other long term (current) drug therapy; F31.9 Bipolar disorder, unspecified
CPT/HCPCS: 36415; 36600; 71045; 71275; 80048; 80053; 80307; 81001; 82805; 83735; 83880; 84484; 85025; 85380; 85610; 85730; 87040; 87086; 87637; 93005; 93970; 96361; 96374; 97161; 97530; 99285; A9270; J0696; J1956; J7030; Q9967

== ENCOUNTER 2022-09-21 13:17 | Outpatient (CLI) | payer MEDICARE, SELFPAY ==
--- NOTE | ~2022-09-21 | XR_ITS ---
EXAMINATION: XR chest 2V Exam Date/Time: 09/21/2022 13:48 CDT HISTORY: HTN/PULMONARY EMBOLISM Comparison: 08/13/2022. RESULT: Lines, tubes, and devices: Partially visualized lumbar fusion hardware. Lungs and pleura: Clear. Cardiomediastinal silhouette: Stable. Other: No acute osseous or upper abdominal finding. IMPRESSION: No acute cardiopulmonary process. Reviewed, dictated and finalized at location K.
[2022-09-21 13:35] LABS: Basophils Absolute Auto 0.01 K/mm3 (0.00-0.10); Basophils Percent Auto 0.2 % (0.0-1.0); Eosinophils Absolute Auto 0.05 K/mm3 (0.02-0.50); Eosinophils Percent Auto 0.9 % (1.0-6.0); Hematocrit 36.7 % (35.0-42.0); Hemoglobin 12.1 g/dL (11.7-13.8); Immature Granulocyte Absolute 0.02 K/mm3 (0.00-0.00); Immature Granulocyte Percent A 0.4 % (0.0-0.0); Lymphocytes Absolute Auto 1.38 K/mm3 (1.10-4.50); Lymphocytes Percent Auto 25.7 % (18.0-42.0); Mean Corpuscular Hemoglobin 32.4 pg (27.0-31.0); Mean Corpuscular Volume 98.4 fL (78.0-102.0); Mean Platelet Volume 9.7 fl (9.2-11.8); Monocytes Percent Auto 5.6 % (2.0-11.0); Neutrophils Absolute Auto 3.6 K/mm3 (1.7-7.2); Neutrophils Percent Auto 67.2 % (50.0-70.0); Platelet Count Result 169 K/mm3 (150-420); Red Blood Count 3.73 M/mm3 (4.20-5.40); Red Cell Distribution Width 13.4 % (11.6-14.4); White Blood Count 5.4 K/mm3 (4.8-10.8)
--- NOTE | 2022-09-21 13:48 | ECHO_ITS ---
Patient Info Name: Daphnie MARIE Age: 72 years : 1950 Gender: Female Ht: 64 in Wt: 135 lbs BSA: 1.67 m2 HR: 58 bpm BP: 131 / 86 mmHg Heart Rhythm: Sinus Rhythm Technical Quality: Fair Exam Date: 09/21/2022 1:47 PM Exam Location: [facility] Patient Status: Outpatient Admit Date: 09/21/2022 Staff Ordering Physician: Denny Cardenas MD Medical Doctor Md/Medical Director: Laura Renee RDCS Attending Provider: Denny Cardenas MD Referring Physician: Theresa WILEY; Exam Type: CA echo doppler color flow Study Info Indications - HTN/PUL HYPERTENSION Complete two-dimensional, color flow and Doppler transthoracic echocardiogram is performed. Summary 1. Complete two-dimensional, color flow and Doppler transthoracic echocardiogram is performed. 2. Left ventricular chamber dimension is normal. 3. Left ventricular systolic function is normal, estimated at 60-65%. 4. Ventricular septum is sigmoid shaped. No LVOT obstruction. 5. The left ventricular diastolic function is grade I diastolic dysfunction. 6. E/e' 6 is not elevated. 7. There is mild aortic valve sclerosis. 8. There is mild aortic valve regurgitation. 9. The mitral valve has mildly calcified annulus. 10. There is mild mitral valve regurgitation. 11. No pulmonary hypertension, estimated pulmonary arterial systolic pressure is 24 mmHg. Left Ventricle E/e' 6 is not elevated. Ventricular septum is sigmoid shaped. No LVOT obstruction. Left ventricular chamber dimension is normal. Left ventricular systolic function is normal, estimated at 60-65%. The left ventricular diastolic function is grade I diastolic dysfunction. Right Ventricle Right ventricular systolic function is normal and with normal TAPSE 2.3 cm. Right ventricular chamber dimension is normal. Left Atria Left atrial chamber dimension is normal. Right Atria Right atrial chamber dimension is normal. Aortic Valve The aortic valve is trileaflet. There is mild aortic valve sclerosis. There is no aortic valve stenosis. There is mild aortic valve regurgitation. Pulmonic Valve There is no pulmonic regurgitation. Mitral Valve The mitral valve has mildly calcified annulus. There is no mitral valve stenosis. There is mild mitral valve regurgitation. Tricuspid Valve There is no tricuspid valve regurgitation. No pulmonary hypertension, estimated pulmonary arterial systolic pressure is 24 mmHg. Pericardium/Pleural There is no pericardial effusion. Inferior Vena Cava Normal inferior vena cava with >50% collapse upon inspiration consistent with normal right atrial pressure, 5 mmHg. Aorta The aortic root size at the sinus of Valsalva is normal. Left Ventricular Outflow Tract Name Value Normal LVOT 2D LVOT Diameter 1.8 cm LVOT Doppler LVOT Peak Velocity 114 cm/s LVOT Peak Gradient 5 mmHg LVOT Mean Gradient 2 mmHg LVOT VTI 24 cm LVOT VTI/AV VTI Ratio 0.7 LVOT Stroke Volume 59 ml Pulmonic Valve Name Value
[2022-09-21 14:17] LABS: Alanine Aminotransferase 14 U/L (14-59); Albumin Level 3.2 g/dL (3.4-5.0); Alkaline Phosphatase 77 U/L (46-116); Anion Gap 11 mmol/L (8-16); Aspartate Amino Transferase 15 U/L (15-37); Bilirubin,Total 0.2 mg/dL (0.00-1.00); Blood Urea Nitrogen 23 mg/dL (7-18); Calcium 9.3 mg/dL (8.5-10.1); Carbon Dioxide 28 mmol/L (21-32); Chloride 105 mmol/L (98-108); Estimated Glomerular Filt Rate > 60; Glucose 134 mg/dL (70-99); Osmolality Calculated 303 mOsm/kg (285-295); Potassium 3.9 mmol/L (3.5-5.1); Sodium 144 mmol/L (136-145); Total Protein 6.6 g/dL (6.4-8.2)
[2022-09-21 16:50] LABS: Hemoglobin A1C 5.5 % (<5.7)
[2022-09-24 10:35] LABS: Factor VIII Activity 114 % normal (50-180)
[2022-09-24 18:51] LABS: Homocysteine 11.7 umol/L (<10.4)
[2022-09-24 22:08] LABS: APC Ratio 1.6 ratio (>=2.1)
[2022-09-24 22:27] LABS: Antithrombin III Activity 139 % normal (80-135)
[2022-09-25 15:01] LABS: Lupus dRVVT Confirmation Negative (Negative); Lupus dRVVT Screen 52 sec (<=45); PTT-LA Screen 37 sec (<=40)
[2022-09-25 21:50] LABS: Anti Cardio Antibody IgM <2.0 MPL-U/mL (<20.0); Anti Cardiolipin Antibody IgA <2.0 APL-U/mL (<20.0); Anti Cardiolipin Antibody IgG <2.0 GPL-U/mL (<20.0)
[2022-09-27 15:21] LABS: Protein S Antigen, Free 133 % normal (50-147); Protein S Antigen, Total 123 % normal (70-140)
[2022-09-28 06:33] LABS: Reference Lab Test Name PHOSPHATIDYLSERINE
[2022-09-29 23:40] LABS: Methylmalonic Acid 95 nmol/L (87-318)
[2022-10-15 11:18] LABS: Reference Lab Test Name FACTOR V (LEIDEN)
== END 2022-09-21 13:18 | disposition home or self-care (01) ==
LOC: CHSIMG 13:18
PROVIDERS: PCP Family Medicine; Visit Provider Family Medicine
DX: I10 Essential (primary) hypertension (principal); I26.99 Other pulmonary embolism without acute cor pulmonale; R73.01 Impaired fasting glucose; I08.3 Combined rheumatic disorders of mitral, aortic and tricuspid valves
CPT/HCPCS: 36415; 71046; 80053; 81240; 81241; 81291; 83036; 83090; 83516; 83921; 85025; 85240; 85300; 85303; 85305; 85306; 85307; 85597; 85613; 85730; 86146; 86147; 93306

== ENCOUNTER 2022-10-27 09:29 | Outpatient (CLI) | payer MEDICARE, SELFPAY ==
--- NOTE | ~2022-10-27 | XR_ITS ---
Left Knee Technique: AP, lateral, and sunrise views were obtained. Clinical History: Pain Findings: No fracture or dislocation is seen. There is moderate to severe degenerative change of the lateral compartment. There is mild to moderate degenerative change of the patellofemoral compartment. Soft tissues are unremarkable. No joint effusion is seen. Impression: Degenerative changes of the lateral and patellofemoral compartments, as detailed above. Reviewed, dictated and finalized at location M. Impression: Degenerative changes of the lateral and patellofemoral compartments, as detaile d above.
--- NOTE | ~2022-10-27 | XR_ITS ---
Right Knee Technique: AP, lateral, and sunrise views were obtained. Clinical History: Pain Findings: No fracture or dislocation is seen. There is minimal patellar spurring. There is mild degen erative change of the lateral compartment.. Soft tissues are unremarkable. No joint effusion is seen. Impression: Mild degenerative changes, as above. Reviewed, dictated and finalized at location M. Impression: Mild degenerative changes, as above.
== END 2022-10-27 09:30 | disposition home or self-care (01) ==
LOC: CHSIMG 09:31
PROVIDERS: PCP Family Medicine; Visit Provider Family Medicine
DX: M25.562 Pain in left knee (principal); M25.561 Pain in right knee
CPT/HCPCS: 73562

== ENCOUNTER 2022-12-27 07:26 | Inpatient (IN) | payer MEDICARE, SELFPAY ==
[2022-12-27] VITALS (27 sets, daily range): BP systolic 88–133; BP diastolic 40–81; PULSE 51–81; RESP 14–79; TEMP 36.7–37.8; O2SAT 94–100; BMI 20.4
--- NOTE | ~2022-12-27 | XR_ITS ---
XR chest 1V portable 12/27/2022 07:59 Indication: Fever. Hypoxia. Procedure: AP portable chest Comparison: 09/21/2022 Findings: Interval development of airspace disease left mid lung, consistent with pneumonia. No pleur al effusion, edema or pneumothorax. Heart size normal. Impression: 1: Left-sided pneumonia, midlung. Reviewed, dictated and finalized at location A. Impression: 1: Left-sided pneumonia, midlung.
--- NOTE | ~2022-12-27 | CT_ITS ---
EXAMINATION: CTA chest PE abdomen pel DATE: 12/27/2022 17:52 INDICATION: hypotension, loc today HX P.E TECHNIQUE: Computed tomography angiography (CTA) of the chest was performed with 100 mL Omnipaque-350 intravenous contrast timed to evaluate the pulmonary arteries, followed by portal venous phase imagi ng of the abdomen and pelvis. Coronal maximum intensity projection 3D-reconstructions were created by the technologist. The dose-length product (DLP) was 955.69 mGy-cm. Automated exposure control and it erative reconstruction technique were employed. COMPARISON: CTPA 08/13/2022; CT lumbar spine 07/29/2022. FINDINGS: CHEST: Lung parenchyma and airways: Senescent changes. Subsegmental dependent left upper lobe and left lower lobe consolidation. Pleura: Small left pleural effusion. Thoracic inlet, axillae and chest wall: Unremarkable. Thoracic aorta: Atherosclerotic calcification. Mediastinum: Normal. Heart and pericardium: Normal. Coronary artery calcifications: Absent. Thoracic bones: No acute osseous finding. Pulmonary arteries: Study quality: Adequate. No pulmonary emboli detected. ABDOMEN/PELVIS: Liver: Mild periportal edema. Biliary/Gallbladder: Gallbladder wall hyperemia and pericholecystic fluid/wall edema. No bile duct di lation. Pancreas: No mass or duct dilation. Spleen: Normal. Adrenals:No mass. Kidneys: No suspicious mass, obstructing stone, or hydronephrosis. GI tract: Mild distal esophageal and gastric wall edema No small or large bowel dilation. Appendix no t confidently visualized. Mesentery/Peritoneum: No ascites, mass, or free air. Retroperitoneum: No mass. Atherosclerotic abdominal aortic and/or arterial calcifications. Pelvis: Mild bladder wall thickening in a well distended bladder. Absent uterus. Mild presacral edema .. Soft Tissues: Mild body wall edema Abdominopelvic bones: No acute osseous finding. Uncomplicated appearing lumbar fusion hardware. IMPRESSION: No CT evidence of acute pulmonary embolus. Subsegmental dependent left upper lobe and lower lobe consolidation, may represent infection, aspirat ion, or atelectasis. Esophagitis/gastritis. Mild periportal edema. Gallbladder hyperemia with pericholecystic fluid/wall edema, correlate with right upper quadrant pain and biliary labs. Possible cystitis. Reviewed, dictated and finalized at location K. IMPRESSION: No CT evidence of acute pulmonary embolus. Subsegmental dependent left upper lobe and lower lobe consolidation, may repres ent infection, aspiration, or atelectasis. Esophagitis/gastritis. Mild periportal edema. Gallbladder hyperemia with pericholecystic fluid/wall edema, correlate with rig ht upper quadrant pain and biliary labs. Possible cystitis.
--- NOTE | ~2022-12-27 | CT_ITS ---
EXAMINATION: CT brain wo con DATE: 12/27/2022 17:51 INDICATION: altered LOC, hypotensive today . TECHNIQUE: Computed tomography (CT) of the head was performed without intravenous contrast. The mA wa s adjusted according to patient size. Iterative reconstruction technique was employed. The dose-lengt h product was 605.33 mGy-cm. COMPARISON: None. FINDINGS: No acute intracranial hemorrhage or extra-axial fluid collection. No hydrocephalus, mass, or herniation. No acute ischemic infarct. Unremarkable dural venous sinus attenuation. No acute osseous abnormality. Trace right mastoid fluid and left maxillary mucosal thickening, the remaining aerated spaces are pavel ar. Mild atrophy and chronic white matter change. Atherosclerotic intracranial calcification. Bilateral l ens replacements. IMPRESSION: No acute intracranial process. Reviewed, dictated and finalized at location K.
--- NOTE | 2022-12-27 07:37 | ED.GENADULT ---
HPI - General Adult General Chief complaint: Urogenital-Female Stated complaint: possible UTI Time Seen by Provider: 12/27/22 07:37 Source: EMS Mode of arrival: EMS Limitations: dementia History of Present Illness HPI narrative: 72-year-old white female brought by EMS from [facility] with fever dark urine more weak than usual. Patient is nonambulatory and very minimally verbal. Has history of posttraumatic stress disorder bipolar disorder and dementia. Edema stated her son O2 sat was 88% on room air. They placed her on 3 L went up to 91%. Her other vitals were good. His comb said that she felt warm and that her urine was really dark So they thought she might have urinary tract infection. Patient denied pain or difficulty breathing. Allergies sulfa codeine tetracycline prednisone. Related Data Home Medications Medication Instructions Recorded Confirmed cholecalciferol (vitamin D3) 25 25 mcg PO BID 07/29/22 12/27/22 mcg (1,000 unit) capsule (Vitamin D3) divalproex 500 mg tablet,extended 1,000 mg PO DAILY 07/29/22 12/27/22 release 24 hr donepezil 5 mg tablet 5 mg PO HS 07/29/22 12/27/22 escitalopram oxalate 10 mg tablet 10 mg PO DAILY 07/29/22 12/27/22 memantine 5 mg tablet 5 mg PO QAM 07/29/22 12/27/22 apixaban 5 mg (74 tabs) tablets in 5 mg PO BID 12/27/22 12/27/22 a dose pack (Eliquis DVT-PE Treat 30D Start) Allergies Allergy/AdvReac Type Severity Reaction Status Date / Time codeine Allergy Unknown Verified 12/27/22 08:07 prednisone Allergy Unknown Verified 12/27/22 08:07 Sulfa (Sulfonamide Allergy Unknown Verified 12/27/22 08:07 Antibiotics) tetracycline Allergy Unknown Verified 12/27/22 08:07 Review of Systems Review of Systems: All systems reviewed & are unremarkable except as noted in HPI and below PMFSH Past Medical History Medical History Bipolar 1 disorder Dementia Family History Family History Other Unknown family medical history Social History Social History Social History: smoker Smoking status: Unknown if ever smoked Alcohol intake: unknown Substance use: unknown Spiritual care concerns: No Exam Narrative: White female elderly minimally verbal patient no apparent distress.? Head normocephalic, atraumatic.? Eyes conjunctiva pink sclera nonicteric.? Extraocular movements are intact.?Pupils pinpoint. Ears externally normal.? Oropharynx is clear with moist mucous membranes without exudates.? Lips dry. Neck is supple nontender no lymphadenopathy.? Back is nontender.? Lungs are clear.? Heart is regular rate and rhythm without murmurs gallops or rubs.? Chest wall is nontender.? Abdomen is soft and nontender no hepatosplenomegaly or masses no CVA tenderness no abdominal bruits.? Extremities no cyanosis clubbing or edema.? Skin is warm and dry without rashes or lesions.? Neurological patient is alert and oriented x4.? patient follows commands. 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 She cannot raise her legs but she can move them on the bed apparently minimally. Sensory: grossly intact.? Urine was thickened with catheterization in and out cath. Medical Decision Making MDM Narrative Medical decision making narrative: Patient brought by EMS from [facility] and placed in room 2. History and physical were performed. 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 EMS O2 sat on room air was 88% placed on 3 L went up to 91%. Patient's had dark urine at the half-way has a history of posttraumatic stress disorder dementia and bipolar felt warm to touch other vitals were normal. Patient is a full code Differential Dx includes but not limited to: UTI pneumonia sepsis Medications were Reviewed:? ? ho
[2022-12-27] MEDS: ACETAMINOPHEN 325 MG TABLET 650 MG PO (08:09)
[2022-12-27] MEDS: SODIUM CHLORIDE 0.9% IV 1,000 ML 150 ML IV CONT (08:09)
[2022-12-27] MEDS: IPRATROPIUM 0.5 MG/ALBUTEROL SULFATE 2.5 MG AMPUL.NEB 3 ML INHALATION (08:14)
[2022-12-27 08:40] LABS: Hematocrit 37.1 % (35.0-42.0); Hemoglobin 12.1 g/dL (11.7-13.8); Immature Platelet Fraction Pct 1.5 % (1.0-7.0); Mean Corpuscular HGB Conc 32.6 g/dL (32.0-36.0); Mean Corpuscular Hemoglobin 32.2 pg (27.0-31.0); Mean Corpuscular Volume 98.7 fL (78.0-102.0); Mean Platelet Volume 9.7 fl (9.2-11.8); Platelet Count Result 107 K/mm3 (150-420); Red Blood Count 3.76 M/mm3 (4.20-5.40); Red Cell Distribution Width 14.3 % (11.6-14.4); White Blood Count 6.6 K/mm3 (4.8-10.8)
[2022-12-27 08:42] LABS: Bilirubin Urine Negative (Negative); Blood Urine 1+ (Negative); Color Urine Light Yellow (Yellow); Glucose Urine UA Negative (Negative); Ketones Urine Trace (Negative); Leukocyte Esterase Ur 3+ LEU/UL (Negative); Nitrate Urine Negative (Negative); Protein Urine Trace (Negative)
[2022-12-27 08:43] LABS: Add Urine Microscopic? YES; Appearance Urine Cloudy (Clear)
[2022-12-27 08:48] LABS: Bacteria Urine 4+ /hpf; Transitional Epi Cells Urine Many /hpf; WBC Clumps Urine Present /hpf; WBC Urine >75 /hpf (0-3)
[2022-12-27 08:51] LABS: INR 1.1; Partial Thromboplastin Time 33.9 SEC (23.90-30.70); Prothrombin Time 11.9 Seconds (9.50-12.10)
[2022-12-27 08:58] LABS: Lactic Acid Reflex 2.8 mmol/L (0.4-2.0)
[2022-12-27 08:59] LABS: Alanine Aminotransferase 9 U/L (14-59); Albumin Level 2.5 g/dL (3.4-5.0); Alkaline Phosphatase 56 U/L (46-116); Anion Gap 10 mmol/L (8-16); Aspartate Amino Transferase < 10 U/L (15-37); Bilirubin,Total 0.4 mg/dL (0.00-1.00); Blood Urea Nitrogen 10 mg/dL (7-18); Calcium 9.5 mg/dL (8.5-10.1); Carbon Dioxide 28 mmol/L (21-32); Chloride 106 mmol/L (98-108); Estimated Glomerular Filt Rate 45; Glucose 136 mg/dL (70-99); Magnesium 1.5 mg/dL (1.8-2.4); NT Pro B Type Natriuretic Pept 1148 pg/mL (0-125); Osmolality Calculated 299 mOsm/kg (285-295); Potassium 3.6 mmol/L (3.5-5.1); Sodium 144 mmol/L (136-145); Total Protein 6.2 g/dL (6.4-8.2); Troponin I 15.9 ng/L (0.00-60.4)
[2022-12-27] MEDS: AZITHROMYCIN 500 MG/NS 250 ML 500 MG/250 ML BAG 250 MG IVPB (09:20)
[2022-12-27 09:24] LABS: Influenza A QL RT-PCR Negative (Negative); Influenza B QL RT-PCR Negative (Negative); RSV RNA, RT-PCR Negative (Negative); SARS-CoV-2 RNA PCR Negative (Negative)
--- NOTE | 2022-12-27 10:00 | ADMGEN ---
This patient, Daphnie MARIE, was admitted to 2nd Floor Room 206-1. Patient/family oriented to hospital policies and general routines including ID bracelet, bed and alarms, visiting hours, pain management, procedures, bathroom and other care routines, personal items, smoking policy, room service/diet, and visiting hours. Information on how to activate the Rapid Response Team has been discussed. Patient/Family are encouraged to report perceived risks to care and to ask questions if they do not understand what they are told or what they should do.
[2022-12-27] MEDS: MAGNESIUM SULF 2 GM/WATER 50ML 2 GM/50 ML BAG IVPB (10:38)
[2022-12-27] MEDS: SODIUM CHLORIDE 0.9% IV 1,000 ML 100 ML IV CONT (10:38)
--- NOTE | 2022-12-27 11:16 | PC.NURSE ---
Called [facility] and spoke with Shilpa. Updated Shilpa on diagnosis and plan of care. Shilpa asked that they be called first for any questions/emergencies. She states that the contact center professional is not poa and may not understand everything.
--- NOTE | 2022-12-27 11:34 | PM.IMHP ---
H&P: HPI History of Present Illness Date/Time: 12/27/22 11:34 Chief Complaint: fever and dark urine Narrative: This is a 72-year-old female patient minimally verbal sent from local nursing facility to the emergency department for evaluation of fever with dark urine output. In the emergency department patient found to urinary tract infection via catheter is ample urine cultures pending as well as left mid lung pneumonia. Rocephin and azithromycin were started. Patient did not meet SIRS criteria but does have elevated lactic acid and decreased blood pressure. Patient has a past medical history of bipolar disorder, dementia, factor 5 Leiden on Eliquis. Information obtained from conversation with ER physician as well as review patient records as patient is a poor historian. Review of Systems Review of Systems: ROS unobtainable: Yes unobtainable due to mental status PMFSH Past Medical History Medical History Bipolar 1 disorder Dementia Factor 5 Leiden mutation, heterozygous Social History Social History Social History: smoker Smoking status: Unknown if ever smoked Alcohol intake: unknown Substance use: unknown Substance use type: does not use Spiritual care concerns: No Meds Home Medications and Allergies Home Medications Medication Instructions Recorded Confirmed Type cholecalciferol (vitamin D3) 25 25 mcg PO BID 07/29/22 12/27/22 History mcg (1,000 unit) capsule (Vitamin D3) divalproex 500 mg tablet,extended 1,000 mg PO DAILY 07/29/22 12/27/22 History release 24 hr donepezil 5 mg tablet 5 mg PO HS 07/29/22 12/27/22 History escitalopram oxalate 10 mg tablet 10 mg PO DAILY 07/29/22 12/27/22 History memantine 5 mg tablet 5 mg PO QAM 07/29/22 12/27/22 History amlodipine 10 mg tablet 10 mg PO DAILY PRN hypertension 08/16/22 12/27/22 Rx #30 tabs apixaban 5 mg (74 tabs) tablets in 5 mg PO BID 12/27/22 12/27/22 History a dose pack (Eliquis DVT-PE Treat 30D Start) Allergies Allergy/AdvReac Type Severity Reaction Status Date / Time codeine Allergy Unknown Verified 12/27/22 08:07 prednisone Allergy Unknown Verified 12/27/22 08:07 Sulfa (Sulfonamide Allergy Unknown Verified 12/27/22 08:07 Antibiotics) tetracycline Allergy Unknown Verified 12/27/22 08:07 Vital Signs Vital Signs - 24 hr 12/27/22 07:26 12/27/22 08:15 12/27/22 08:20 Temperature 37.8 C H Pulse Rate 78 78 80 Respiratory Rate 20 16 16 Blood Pressure 103/57 L Pulse Oximetry 95 95 97 Oxygen Delivery Room Air 12/27/22 08:29 12/27/22 08:30 12/27/22 08:31 Temperature Pulse Rate 79 75 81 Respiratory Rate 16 15 15 Blood Pressure 133/56 L Pulse Oximetry 100 100 100 Oxygen Delivery Room Air 12/27/22 08:45 12/27/22 09:41 12/27/22 09:01 Temperature 36.8 C Pulse Rate 73 79 Respiratory Rate 16 14 72 H Blood Pressure 109/56 L 103/81 Pulse Oximetry 97 96 Oxygen Delivery Room Air 12/27/22 09:02 12/27/22 09:15 12/27/22 09:30 Temperature Pulse Rate Respiratory Rate 78 H Blood Pressure Pulse Oximetry 94 95 96 Oxygen Delivery 12/27/22 09:31 12/27/22 10:21 12/27/22 10:00 Temperature 36.7 C Pulse Rate 65 Respiratory Rate 79 H 17 Blood Pressure 109/56 L 94/40 L Pulse Oximetry 95 97 97 Oxygen Delivery Room Air Room Air Exam Narrative: GENERAL: Lying supine in bed, head tilted to the left with dysconjugate gaze, answers questions in 2-3 word replies but appears oriented, no distress noted, chills and shivering present HEENT: Pupils are equally round and briskly reactive to light. dysconjugate gaze NECK: The patient has no noted JVD. No adenopathy is appreciated. CHEST/LUNGS: Lungs are clear bilaterally without rhonchi, rales, or wheezes. There is no subcutaneous air appreciated. There is no tenderness to the chest wall. HEART: The pat
[2022-12-27 11:36] LABS: Reflex Lactic Acid Yes or No Add Lactic
[2022-12-27] MEDS: LACTATED RINGERS 1,000 ML 999 ML IV CONT (12:01)
[2022-12-27] MEDS: SODIUM CHLORIDE 0.9% IV 1,000 ML 999 ML IV CONT (13:05)
--- NOTE | 2022-12-27 13:09 | PC.NURSE ---
Pt bp 80/33 on automated cuff and 90/[address] NP. Received order for a bolus of NS 1000ml at 999ml/hr.
[2022-12-27 14:26] LABS: Lactic Acid 3.4 mmol/L (0.4-2.0)
--- NOTE | 2022-12-27 14:46 | ECG_ITS ---
Measurements Intervals [place] Rate: 52 P: 66 DC: 173 QRS: -23 QRSD: 88 T: 29 QT: 438 QTc: 409 Interpretive Statements SINUS BRADYCARDIA LOW QRS VOLTAGE- DIFFUSE LEADS INFERIOR INFARCT, AGE INDETERMINATE BORDERLINE T WAVE ABNORMALITY- HIGH LATERAL LEADS BASELINE ARTIFACT- V4 ABNORMAL ECG COMPARED TO ECG 08/13/2022 13:29:30 SINUS BRADYCARDIA NOW PRESENT Electronically Signed On 12-27-2022 20:41:23 CDT by Ozzy Porras D.O.
[2022-12-27] MEDS: ALBUMIN HUMAN 5% 25 GM/500 ML BTL IV CONT (14:55)
--- NOTE | 2022-12-27 16:15 | PC.NURSE ---
FORECLOSURE CLERK called and given update. Nursing staff unable to obtain a second IV site at this time to administer Zosyn. CT unable to be performed due to lack of persons to give consent. Pt having increased confusion and intermittent responsiveness. No orders at this time, FORECLOSURE CLERK will be on his way in to see the patient.
--- NOTE | 2022-12-27 17:11 | PC.NURSE ---
Pts blood pressure 88/[address] NP. Received order for 25gm Albumin 5%.
--- NOTE | 2022-12-27 17:23 | PM.TDS ---
Transfer Discharge Sum: Prov Provider Date of admission: 12/27/22 09:47 Primary care physician: Denny Cardenas MD Admitting clinician: Milton Magaña MD Attending physician on admission: Guru Magaña Attending physician on discharge: Guru Magaña Discharging clinician: [place] Anticipated date of transfer: 12/27/22 Receiving physician/facility: [facility], Dr. Singh DS: Admitting Diagnosis Discharge Date 12/27/2022 Admitting Diagnosis acute UTI, pneumonia, hypomagnesemia, VAMSI, Bipolar 1 disorder, Dementia DS: Discharge Diagnosis Discharge Diagnosis (1) Septic shock: Code(s): A41.9 - Sepsis, unspecified organism; R65.21 - Severe sepsis with septic shock Status: Acute (2) Acute UTI: Code(s): N39.0 - Urinary tract infection, site not specified Status: Acute (3) VAMSI (acute kidney injury): Code(s): N17.9 - Acute kidney failure, unspecified Status: Acute (4) Hypomagnesemia: Code(s): E83.42 - Hypomagnesemia Status: Acute (5) Community acquired pneumonia: Qualifiers: Laterality: unspecified laterality Qualified Code(s): J18.9 - Pneumonia, unspecified organism Code(s): J18.9 - Pneumonia, unspecified organism Status: Acute (6) Bipolar 1 disorder: Code(s): F31.9 - Bipolar disorder, unspecified Status: Chronic (7) Dementia: Code(s): F03.90 - Unspecified dementia, unspecified severity, without behavioral disturbance, psychotic disturbance, mood disturbance, and anxiety Status: Chronic Plan Transfer to [facility], plan IMU placement under Hospitalist care, might need ICU if hypotension returns and IV pressors are needed. Transfer Discharge Sum: Med Medications Active and Home Medications: Home Medications cholecalciferol (vitamin D3) 25 mcg (1,000 unit) capsule (Vitamin D3) 25 mcg PO BID 07/29/22 [History Confirmed 12/27/22] divalproex 500 mg tablet,extended release 24 hr 1,000 mg PO DAILY 07/29/22 [History Confirmed 12/27/22] donepezil 5 mg tablet 5 mg PO HS 07/29/22 [History Confirmed 12/27/22] escitalopram oxalate 10 mg tablet 10 mg PO DAILY 07/29/22 [History Confirmed 12/27/22] memantine 5 mg tablet 5 mg PO QAM 07/29/22 [History Confirmed 12/27/22] amlodipine 10 mg tablet 10 mg PO DAILY PRN hypertension #30 tabs 08/16/22 [Rx Confirmed 12/27/22] apixaban 5 mg (74 tabs) tablets in a dose pack (EliGradeable DVT-PE Treat 30D Start) 5 mg PO BID 12/27/22 [History Confirmed 12/27/22] Active Medications Acetaminophen (Acetaminophen 325 Mg Tablet) 650 mg PO Q4H PRN PRN Reason: Pain Rated 5 or Less or Fever Albuterol (Albuterol Sulfate Neb 2.5 Mg/3 Ml Inh) 2.5 mg INHALATION Q4HRT PRN PRN Reason: Shortness Of Breath Albuterol/Ipratropium (Ipratropium 0.5 Mg/Albuterol Sulfate 2.5 Mg Ampul.Neb 3 Ml) 3 ml INHALATION Q4HRT PRN PRN Reason: shortness of breath or wheezing Apixaban (Apixaban 2.5 Mg Tablet) 5 mg PO Q12HR NGOC Azithromycin (Azithromycin 250 Mg Tablet) 500 mg PO DAILY NGOC Stop: 12/31/22 12:00 Divalproex Sodium (Divalproex Sodium Er 500 Mg Tab.24h) 1,000 mg PO DAILY NGOC Donepezil HCl (Donepezil Hcl 5 Mg Tablet) 5 mg PO HS NGOC Escitalopram Oxalate (Escitalopram Oxalate 10 Mg Tablet) 10 mg PO DAILY NGOC Sodium Chloride (Normal Saline Iv) 1,000 mls @ 100 mls/hr IV CONT .Q10H NGOC Last Infusion: 12/27/22 14:06 Dose: 100 mls/hr Ceftriaxone Sodium (Rocephin 2 Gm/Ns 100 Ml) 2 gm in 100 mls @ 200 mls/hr IVPB Q24H NGOC Albumin Human (Albumin Human 5%) 25 gm in 500 mls @ 125 mls/hr IV CONT .Q4H ONE Stop: 12/27/22 18:59 Last Admin: 12/27/22 14:55 Dose: 125 mls/hr Memantine (Memantine 5 Mg Tablet) 5 mg PO QAM NGOC Morphine Sulfate (Morphine Sulfate (*Crx) 2 Mg/Ml Inj) 2 mg IV PUSH Q4H PRN PRN Reason: Pain Rated 6 or Greater Ondansetron HCl (Ondansetron Inj 4 Mg/2 Ml Vial) 4 mg IV PUSH Q6H PRN PRN Reason: Nausea And Vomiting Vitamin D (Cholecalciferol 1,000 Units Tablet)
[2022-12-27] MEDS: PIPERACILLIN/TAZ 4.5G/NS 100ML 4.5 GM/100 ML BAG IVPB (18:00)
--- NOTE | 2022-12-27 18:44 | PC.NURSE ---
[place] [facility] notified of patient being transferred to [facility].
== END 2022-12-27 18:50 | disposition short-term general hospital (02) | DRG 871 ==
LOC: CHSED 09:32 → CHS2ND 10:49
PROVIDERS: Admitting Provider Internal Medicine; Emergency Provider Emergency Medicine; PCP Family Medicine; Visit Provider Internal Medicine
DX: A41.9 Sepsis, unspecified organism (principal); F43.10 Post-traumatic stress disorder, unspecified; J18.9 Pneumonia, unspecified organism; R65.21 Severe sepsis with septic shock; N39.0 Urinary tract infection, site not specified; Z20.822 Contact with and (suspected) exposure to COVID-19; N17.9 Acute kidney failure, unspecified; D68.51 Activated protein C resistance; E86.0 Dehydration; E83.42 Hypomagnesemia; F31.9 Bipolar disorder, unspecified; F03.90 Unspecified dementia, unspecified severity, without behavioral disturbance, psychotic disturbance, mood disturbance, and anxiety; Z79.01 Long term (current) use of anticoagulants; Z74.01 Bed confinement status
CPT/HCPCS: 36415; 70450; 71045; 71275; 74177; 80053; 81001; 83605; 83735; 83880; 84484; 85027; 85055; 85610; 85730; 87040; 87086; 87637; 93005; 94640; 96365; 99285; A9270; J0456; J0696; J2543; J3475; J7030; J7120; P9045; Q9967

== ENCOUNTER 2022-12-27 20:27 | Observation (INO) | payer MEDICARE, SELFPAY ==
--- NOTE | ~2022-12-27 | XR_ITS ---
EXAMINATION: XR_[id number]_CR DATE: 01/01/2023 13:20 INDICATION: Right-sided torticollis. TECHNIQUE: 3 views of cervical spine on 6 radiographs were obtained. COMPARISON: None. FINDINGS: There is 3 degrees levocurvature of cervical spine. There is 2 mm retrolisthesis of C5 on C 6. There is mildly decreased disc height at C4-C5, severely decreased disc height at C5-C6, and mildl y decreased disc height at C6-C7. There is multilevel facet joint osteoarthritis, severe at multiple levels on the left. There is mild central canal stenosis at C5-C6. No prevertebral soft tissue swelli ng. IMPRESSION: 1. Severe cervical spondylosis. Reviewed, dictated and finalized at location E.
--- NOTE | ~2022-12-27 | XR_ITS ---
MODIFIED ESOPHAGRAM HISTORY: Gurgling after food intake. Pneumonia. TECHNIQUE: Modified barium esophagram was performed on 12/30/2022. I administered fluoroscopy and perf ormed the exam with speech pathologist. Patient was seated for lateral fluoroscopic imaging for reuben stion of thin liquids, pudding, solids and quantified amounts, followed by thin liquids in uncontroll ed amounts. This was recorded on tape. A single fluoroscopic spot image was also recorded. The DAP fo r this procedure was 2.3 Gycm2. The amount of fluoroscopy time used during this procedure was 2.5 min utes. FINDINGS: Oral stage: Adequate function. Pharyngeal stage: Pharyngeal dysphagia with reduced pharyngeal elevation and tongue base retraction. There is residue along the pharyngeal wall and at both the vallecula and piriform sinuses. Laryngeal penetration without aspiration. Cervical/esophageal stage: Adequate function. IMPRESSION: Pharyngeal dysphagia with laryngeal penetration but without aspiration. Please correlate with speech pathologist findings and specific feeding recommendations. Reviewed, dictated and finalized at location A. IMPRESSION: Pharyngeal dysphagia with laryngeal penetration but without aspirat ion. Please correlate with speech pathologist findings and specific feeding re commendations.
--- NOTE | ~2022-12-27 | CT_ITS ---
EXAMINATION: CT brain wo con INDICATION: Increased weakness and confusion COMPARISON: 12/27/2022 TECHNIQUE: Standard unenhanced head CT. The dose-length product (DLP) was 605.33 mGy-cm. The mA was a djusted according to patient size. Iterative reconstruction technique was employed. FINDINGS: No acute intraparenchymal hemorrhage. No evidence of mass lesion. No evidence of acute infa rction. There is mild periventricular and subcortical hypodensity probably related to small vessel is chemic disease. There is mild prominence of the sulci and ventricles related to cerebral atrophy. Int racranial calcified cerebral atherosclerosis is noted. No extra-axial collections. No mass effect or midline shift. Changes in the globes are likely from ocular lens surgery. The visualized sinuses and mastoid air cells are well aerated. IMPRESSION: 1. No acute intracranial abnormality. 2. Age related findings. Reviewed, dictated and finalized at location F.
--- NOTE | ~2022-12-27 | US_ITS ---
US abdomen limited INDICATION: Gallbladder wall edema. Pericholecystic fluid seen on CT. PROCEDURE: Realtime right upper abdominal ultrasound. COMPARISON: No prior studies for comparison. FINDINGS: The pancreas is normal without focal mass or pancreatic ductal dilation. Liver echotexture is normal without focal mass or intrahepatic biliary dilatation. There is normal directional flow i n the portal vein. Gallbladder wall is mildly thickened measuring 3 mm. There is a 5 mm gallbladder polyp. No significan t pericholecystic fluid. Common bile duct measures 6 mm. No sonographic Patel's sign. IMPRESSION: 1: Gallbladder wall thickening. This could indicate interstitial edema, chronic liver disease or beauty specialist ranjeet cholecystitis. 2: Gallbladder polyp measuring 5 mm. Reviewed, dictated and finalized at location B. IMPRESSION: 1: Gallbladder wall thickening. This could indicate interstitial edema, chronic liver disease or chronic cholecystitis. 2: Gallbladder polyp measuring 5 mm.
[2022-12-27 19:40] VITALS: BP 130/48; PULSE 52
--- NOTE | 2022-12-27 19:55 | ADMIMU ---
This patient, Daphnie MARIE, was admitted to IMU status, and placed in Intensive Care Unit-2. Patient/family oriented to hospital policies and general routines including ID bracelet, bed and alarms, visiting hours, pain management, procedures, bathroom and other care routines, personal items, smoking policy, room service/diet, and visiting hours. Valuables list has been completed. Information on how to activate the Rapid Response Team has been discussed. Patient/Family are encouraged to report perceived risks to care and to ask questions if they do not understand what they are told or what they should do.
[2022-12-27 19:59] VITALS: BMI 21.1
[2022-12-27 20:00] VITALS: BP 112/62; PULSE 49; PULSE 50; RESP 14; TEMP 36.5; O2SAT 100
--- NOTE | 2022-12-27 20:59 | PM.IMHP ---
H&P: HPI History of Present Illness Date/Time: 12/27/22 20:30 Chief Complaint: Hypotension, UTI, pneumonia. Narrative: This is a pleasant 72-year-old female with dementia, pulmonary embolism on anticoagulation, bipolar disorder, and depression who is being directly admitted to the IMU from the medical floor at an outside facility with hypotension pneumonia, and UTI. The patient provides the following history. Some of the following is obtained via a review of her EMR as she is a fair historian. She has not been feeling well for several days with fever, dysuria, and weakness. She was seen in the ED at the outside facility this morning where her vital signs were stable. Her workup was significant for urinary tract infection and possible left lung pneumonia. She was started on azithromycin and ceftriaxone and admitted to the medical floor. Over the course of the day her blood pressures gradually dropped. She was aggressively hydrated with crystalloids and albumin however her blood pressures remained soft and she was transferred for closer monitoring. Since arrival to the IMU, her blood pressures have been stable above 100 systolic. She reports feeling better and has no complaints at the time my evaluation aside from a poor appetite and fatigue. She denies headache, sinus congestion, sore throat, cough, chest pain, abdominal pain, vomiting, and diarrhea. She denies dysphagia and concerns for aspiration. Review of Systems Review of Systems: Twelve systems were reviewed and are negative except for as per HPI. [facility] Past Medical History Medical History (Updated 12/27/22 @ 23:17 by Paulina Martell PA-C) Bipolar disorder Chronic anticoagulation Dementia Factor 5 Leiden mutation, heterozygous Hypertension Pulmonary embolism (08/2022) Family History Family History (Updated 12/27/22 @ 23:12 by Paulina Martell PA-C) Other Family history unknown Social History Social History (Updated 12/27/22 @ 23:13 by Paulina Martell PA-C) Social History: Code status: Full code. Smoking status: Never smoker Alcohol intake: never Substance use: never Substance use type: does not use Lack of Transportation: No Lack of Food: Never True Current Housing: I Have Housing Concerned About Future Housing: No Difficulty Paying Gas/Electric Bills: No Difficulty Paying for Meds: No Currently Unemployed: No Education: Decline to Answer Difficulty w/ Childcare or Family Care: No Spiritual care concerns: No Meds Home Medications and Allergies Home Medications Medication Instructions Recorded Confirmed Type cholecalciferol (vitamin D3) 25 25 mcg PO BID 07/29/22 12/27/22 History mcg (1,000 unit) capsule (Vitamin D3) divalproex 500 mg tablet,extended 1,000 mg PO DAILY 07/29/22 12/27/22 History release 24 hr donepezil 5 mg tablet 5 mg PO HS 07/29/22 12/27/22 History escitalopram oxalate 10 mg tablet 10 mg PO DAILY 07/29/22 12/27/22 History memantine 5 mg tablet 5 mg PO QAM 07/29/22 12/27/22 History apixaban 5 mg (74 tabs) tablets in 5 mg PO BID 12/27/22 12/27/22 History a dose pack (Eliquis DVT-PE Treat 30D Start) Allergies Allergy/AdvReac Type Severity Reaction Status Date / Time codeine Allergy Unknown Verified 12/27/22 08:07 prednisone Allergy Unknown Verified 12/27/22 08:07 Sulfa (Sulfonamide Allergy Unknown Verified 12/27/22 08:07 Antibiotics) tetracycline Allergy Unknown Verified 12/27/22 08:07 Vital Signs Vital Signs - 24 hr 12/27/22 20:00 12/27/22 20:00 12/27/22 20:00 Temperature 97.7 F Pulse Rate 50 L 49 L Respiratory Rate 14 Blood Pressure 112/62 Pulse Oximetry 100 100 Oxygen Delivery Room Air 12/27/22 19:40 Temperature Pulse Rate 52 L Respiratory Rate Blood Pressure 130/48 L Pulse Oximetry Oxygen Delivery Exam Narrative: General: Mildly ill-appearing female in the semi-Sy position in bed. Weight: 57.5 kg. BMI: 21.
[2022-12-27 21:48] LABS: Basophils Percent Auto 0.2 % (0.2-1.2); Hematocrit 30.4 % (37.0-47.0); Hemoglobin 9.4 g/dL (12.0-15.0); Immature Granulocyte Absolute 0.02 K/mm3 (0.00-0.031); Immature Granulocyte Percent A 0.4 % (0-0.5); Immature Platelet Fraction Pct 2.5 % (0.9-11.2); Lymphocytes Absolute Auto 1.27 K/mm3 (0.9-3.2); Lymphocytes Percent Auto 27.1 % (18.3-44.2); Mean Corpuscular HGB Conc 30.9 g/dl (32-36); Mean Corpuscular Hemoglobin 32.1 pg (26-34); Mean Corpuscular Volume 103.8 fl (80-100); Monocytes Absolute Auto 0.5 K/mm3 (0.1-0.6); Monocytes Percent Auto 9.6 % (2.6-8.5); Neutrophils Absolute Auto 2.9 K/mm3 (1.3-6.7); Neutrophils Percent Auto 62.7 % (45.5-73.1); Platelet Count Result 70 k/mm3 (150-375); Red Blood Count 2.93 M/mm3 (4.2-5.4); Red Cell Distribution Width 14.5 % (11.5-14.5); White Blood Count 4.7 K/mm3 (4.5-10.0)
[2022-12-27 21:58] LABS: Alanine Aminotransferase 12 U/L (6-35); Albumin Level 2.8 g/dL (3.5-5.1); Alkaline Phosphatase 39 U/L (38-126); Anion Gap 7 mmol/L (8-16); Aspartate Amino Transferase 15 U/L (14-36); Bilirubin,Total 0.3 mg/dL (0.2-1.3); Blood Urea Nitrogen 9 mg/dL (7-17); Carbon Dioxide 25 mmol/L (22-30); Chloride 108 mmol/L (98-107); Estimated CRCL calculation 64 ml/min; Estimated Glomerular Filt Rate > 60; Glucose 105 mg/dL (65-110); Magnesium 2.1 mg/dL (1.6-2.3); Potassium 3.6 mmol/L (3.4-5.0); Sodium 140 mmol/L (137-145)
[2022-12-27 21:59] VITALS: PULSE 45
[2022-12-27 21:59] LABS: Lactic Acid Reflex 2.4 mmol/L (0.7-2.0)
[2022-12-27 22:04] LABS: Platelet Estimate Decreased (Adequate); Schistocytes None Seen (NORMAL)
[2022-12-27 22:14] LABS: Procalcitonin 0.3 ng/mL
[2022-12-27 23:08] VITALS: PULSE 41; RESP 13; O2SAT 100
[2022-12-28] VITALS (13 sets, daily range): BP systolic 100–138; BP diastolic 61–94; PULSE 39–81; RESP 11–14; TEMP 36.4–36.8; O2SAT 98–100; BMI 21.1
[2022-12-28 00:43] LABS: Reflex Lactic Acid Yes or No Add Lactic
[2022-12-28 04:44] LABS: Basophils Percent Auto 0.2 % (0.2-1.2); Hematocrit 30.2 % (37.0-47.0); Hemoglobin 9.7 g/dL (12.0-15.0); Immature Granulocyte Absolute 0.03 K/mm3 (0.00-0.031); Immature Granulocyte Percent A 0.6 % (0-0.5); Immature Platelet Fraction Pct 2.8 % (0.9-11.2); Lymphocytes Absolute Auto 1.59 K/mm3 (0.9-3.2); Lymphocytes Percent Auto 32.4 % (18.3-44.2); Mean Corpuscular HGB Conc 32.1 g/dl (32-36); Mean Corpuscular Hemoglobin 32.7 pg (26-34); Mean Corpuscular Volume 101.7 fl (80-100); Mean Platelet Volume 10.1 fl (7.4-10.4); Monocytes Absolute Auto 0.3 K/mm3 (0.1-0.6); Monocytes Percent Auto 6.7 % (2.6-8.5); Neutrophils Percent Auto 60.1 % (45.5-73.1); Platelet Count Result 76 k/mm3 (150-375); Red Blood Count 2.97 M/mm3 (4.2-5.4); Red Cell Distribution Width 14.3 % (11.5-14.5); White Blood Count 4.9 K/mm3 (4.5-10.0)
[2022-12-28 04:53] LABS: Alanine Aminotransferase 10 U/L (6-35); Albumin Level 2.8 g/dL (3.5-5.1); Alkaline Phosphatase 41 U/L (38-126); Anion Gap 4 mmol/L (8-16); Aspartate Amino Transferase 14 U/L (14-36); Bilirubin,Total 0.3 mg/dL (0.2-1.3); Blood Urea Nitrogen 8 mg/dL (7-17); Calcium 8.4 mg/dL (8.4-10.2); Carbon Dioxide 27 mmol/L (22-30); Chloride 109 mmol/L (98-107); Estimated CRCL calculation 64 ml/min; Estimated Glomerular Filt Rate > 60; Glucose 77 mg/dL (65-110); INR 1.3; Lactic Acid Reflex 1.1 mmol/L (0.7-2.0); Magnesium 2.1 mg/dL (1.6-2.3); Potassium 3.8 mmol/L (3.4-5.0); Prothrombin Time 16.7 Seconds (11.1-14.7); Sodium 140 mmol/L (137-145)
[2022-12-28 04:54] LABS: Partial Thromboplastin Time 44.4 SECONDS (22.3-36.8)
--- NOTE | 2022-12-28 08:23 | PM.IMPN ---
Progress Note: A&P Assessment and Plan (1) Sepsis: Code(s): A41.9 - Sepsis, unspecified organism Status: Acute Assessment and Plan: Unsure of etiology, could be UTI versus biliary versus lung source, follow-up blood and urine cultures Procalcitonin 0.3, recheck in a few days Broad-spectrum antibiotics initiated with vanc, Levaquin, Flagyl MRSA swab pending Check CRP, RUQ US (2) Urinary tract infection: Code(s): N39.0 - Urinary tract infection, site not specified Status: Acute Assessment and Plan: Antibiotics as above, follow up urine culture (3) Community acquired pneumonia: Qualifiers: Laterality: unspecified laterality Qualified Code(s): J18.9 - Pneumonia, unspecified organism Code(s): J18.9 - Pneumonia, unspecified organism Status: Acute Assessment and Plan: Antibiotics as above, monitor (4) Anemia: Code(s): D64.9 - Anemia, unspecified Status: Acute Assessment and Plan: Stable, monitor (5) Thrombocytopenia: Code(s): D69.6 - Thrombocytopenia, unspecified Status: Acute Assessment and Plan: Likely due to acute infectious etiology, monitor (6) Chronic anticoagulation: Code(s): Z79.01 - [facility] (current) use of anticoagulants Status: Acute Assessment and Plan: Hold Eliquis for now due to acute drop in hemoglobin, suspect this was delusional, if hemoglobin is stable tomorrow will restart anticoagulation (7) Dementia: Code(s): F03.90 - Unspecified dementia, unspecified severity, without behavioral disturbance, psychotic disturbance, mood disturbance, and anxiety Status: Chronic Assessment and Plan: Stable, hold Aricept and Namenda (8) Bipolar disorder: Code(s): F31.9 - Bipolar disorder, unspecified Status: Acute Assessment and Plan: Continue home Lexapro Depakote, monitor Plan DVT prophylaxis with SCDs GI prophylaxis not indicated Code status full code Subjective Date/time seen: 12/28/22 08:23 Interval history: 72-year-old female with dementia, pulmonary embolism on anticoagulation, bipolar disorder, and depression who is being directly admitted to the IMU from the medical floor at an outside facility with hypotension pneumonia, and UTI and possible cholecystitis. No overnight events noted. No chest pain or shortness of breath. No nausea, vomiting or diarrhea. No fevers or chills. Review of Systems Review of Systems: 12 point review of systems was assessed and was negative except as noted in the HPI Exam Narrative: General: No acute distress, alert and oriented per baseline HEENT: Atraumatic, normocephalic, mucous membranes moist CV: Regular rate and rhythm, S1, S2 Lungs: Clear to auscultation bilaterally, no rales or crackles noted, no wheezes, good air entry Abdomen: Soft, nontender, nondistended Extremities: Normal to inspection Skin: No rashes noted, no lesions or wounds seen Psych: Euthymic, normal affect Objective Data Vital Signs Vital Signs: Vital Signs - 24 hr 12/27/22 20:00 12/27/22 20:00 12/27/22 20:00 Temperature 97.7 F Pulse Rate 50 L 49 L Respiratory Rate 14 Blood Pressure 112/62 Pulse Oximetry 100 100 Oxygen Delivery Room Air 12/27/22 19:40 12/27/22 21:59 12/27/22 23:08 Temperature Pulse Rate 52 L 45 L 41 L Respiratory Rate 13 Blood Pressure 130/48 L Pulse Oximetry 100 Oxygen Delivery Room Air 12/28/22 00:00 12/28/22 00:00 12/28/22 01:58 Temperature 97.9 F Pulse Rate 42 L 40 L 40 L Respiratory Rate 12 Blood Pressure 100/61 Pulse Oximetry 98 Oxygen Delivery 12/28/22 03:19 12/28/22 04:00 12/28/22 04:00 Temperature 97.6 F Pulse Rate 46 L 49 L Respiratory Rate 14 Blood Pressure 113/94 H Pulse Oximetry 100 Oxygen Delivery Room Air 12/28/22 05:49 12/28/22 07:42 Temperature 97.7 F P
[2022-12-28 09:09] LABS: CRP 7.5 mg/dL (<1.0)
[2022-12-28] MEDS: CHOLECALCIFEROL 1,000 UNITS TABLET 1000 UNITS PO ×2 (09:21→16:27)
[2022-12-28] MEDS: levoFLOXacin 750 MG/D5W 150 ML 750 MG/150 ML BAG 100 MG IVPB (09:22)
[2022-12-28] MEDS: DIVALPROEX SODIUM ER 500 MG TAB.24H 1000 MG PO (09:22)
[2022-12-28] MEDS: ESCITALOPRAM OXALATE 10 MG TABLET PO (09:22)
[2022-12-28] MEDS: metroNIDAZOLE 500 MG/ISO 100ML 500 MG/100 ML BAG 100 MG IVPB ×2 (13:10→20:33)
[2022-12-29] VITALS (11 sets, daily range): BP systolic 114–141; BP diastolic 65–88; PULSE 37–64; RESP 8–13; TEMP 36.2–36.6; O2SAT 98–100
[2022-12-29] MEDS: VANCOMYCIN 1,000 MG/NS 250 ML 1,000 MG/250 ML BAG 250 MG IVPB (03:37)
[2022-12-29] MEDS: metroNIDAZOLE 500 MG/ISO 100ML 500 MG/100 ML BAG 100 MG IVPB (04:29)
[2022-12-29 05:06] LABS: Hematocrit 30.9 % (37.0-47.0); Hemoglobin 9.9 g/dL (12.0-15.0); Immature Platelet Fraction Pct 3.2 % (0.9-11.2); Mean Corpuscular Hemoglobin 32.2 pg (26-34); Mean Corpuscular Volume 100.7 fl (80-100); Platelet Count Result 85 k/mm3 (150-375); Red Blood Count 3.07 M/mm3 (4.2-5.4); Red Cell Distribution Width 14.4 % (11.5-14.5); White Blood Count 4.3 K/mm3 (4.5-10.0)
[2022-12-29 05:19] LABS: Alanine Aminotransferase 9 U/L (6-35); Albumin Level 2.7 g/dL (3.5-5.1); Alkaline Phosphatase 41 U/L (38-126); Anion Gap 6 mmol/L (8-16); Aspartate Amino Transferase 12 U/L (14-36); Bilirubin,Total 0.2 mg/dL (0.2-1.3); Blood Urea Nitrogen 6 mg/dL (7-17); Calcium 8.3 mg/dL (8.4-10.2); Carbon Dioxide 26 mmol/L (22-30); Chloride 108 mmol/L (98-107); Estimated CRCL calculation 64 ml/min; Estimated Glomerular Filt Rate > 60; Glucose 82 mg/dL (65-110); Magnesium 1.9 mg/dL (1.6-2.3); Potassium 3.5 mmol/L (3.4-5.0); Sodium 140 mmol/L (137-145)
[2022-12-29] MEDS: ESCITALOPRAM OXALATE 10 MG TABLET PO (08:08)
[2022-12-29] MEDS: levoFLOXacin 750 MG/D5W 150 ML 750 MG/150 ML BAG 100 MG IVPB (08:09)
[2022-12-29] MEDS: DIVALPROEX SODIUM ER 500 MG TAB.24H 1000 MG PO (08:09)
[2022-12-29] MEDS: CHOLECALCIFEROL 1,000 UNITS TABLET 1000 UNITS PO ×2 (08:09→16:41)
--- NOTE | 2022-12-29 10:23 | PM.IMPN ---
Progress Note: A&P Assessment and Plan (1) Sepsis: Code(s): A41.9 - Sepsis, unspecified organism Status: Acute Assessment and Plan: Unsure of etiology, could be UTI versus biliary versus lung source, follow-up blood and urine cultures Procalcitonin 0.3, CRP 7.5, consider recheck in a few days Broad-spectrum antibiotics initiated with vanc, Levaquin, Flagyl 12/28 MRSA swab pending 12/28: RUQ US more indicative of chronic cholecystitis, urine cx negative, blood cx NGTD, suspect pna as source of sepsis, d/c flagyl, d/c vanc if MRSA swab comes back negative, anticipate d/c home on oral abx tomorrow if bld cx and MRSA negative and patient continues to improve on levaquin alone 12/29: all symptoms resolved, VSS, d/c HHC when able on oral abx (2) Urinary tract infection: Code(s): N39.0 - Urinary tract infection, site not specified Status: Acute Assessment and Plan: Antibiotics as above, follow up urine culture 12/29: urine culture negative, de-escalate abx as above (3) Community acquired pneumonia: Qualifiers: Laterality: unspecified laterality Qualified Code(s): J18.9 - Pneumonia, unspecified organism Code(s): J18.9 - Pneumonia, unspecified organism Status: Acute Assessment and Plan: Antibiotics as above, monitor (4) Anemia: Code(s): D64.9 - Anemia, unspecified Status: Acute Assessment and Plan: Stable, monitor (5) Thrombocytopenia: Code(s): D69.6 - Thrombocytopenia, unspecified Status: Acute Assessment and Plan: Likely due to acute infectious etiology, monitor (6) Chronic anticoagulation: Code(s): Z79.01 - [facility] (current) use of anticoagulants Status: Acute Assessment and Plan: Hold Eliquis for now due to acute drop in hemoglobin, suspect this was dilutional, if hemoglobin is stable tomorrow will restart anticoagulation 12/29: hgb stable, restart eliquis and monitor closely (7) Dementia: Code(s): F03.90 - Unspecified dementia, unspecified severity, without behavioral disturbance, psychotic disturbance, mood disturbance, and anxiety Status: Chronic Assessment and Plan: Stable, hold Aricept and Namenda while on levaquin (8) Bipolar disorder: Code(s): F31.9 - Bipolar disorder, unspecified Status: Acute Assessment and Plan: Continue home Lexapro Depakote, monitor Plan DVT prophylaxis with SCDs, eliquis GI prophylaxis not indicated Code status full code Subjective Date/time seen: 12/29/22 10:23 Interval history: 72-year-old female with dementia, pulmonary embolism on anticoagulation, bipolar disorder, and depression who is being directly admitted to the IMU from the medical floor at an outside facility with hypotension, pneumonia, and UTI and possible cholecystitis. No overnight events noted. No chest pain or shortness of breath. No nausea, vomiting or diarrhea. No fevers or chills. She feels back to herself, no complaints. Review of Systems Review of Systems: 12 point review of systems was assessed and was negative except as noted in the HPI Exam Narrative: General: No acute distress, alert and oriented per baseline HEENT: Atraumatic, normocephalic, mucous membranes moist CV: Regular rate and rhythm, S1, S2 Lungs: Scattered crackles, slightly diminished at bases, no wheeze Abdomen: Soft, nontender, nondistended Extremities: Normal to inspection Skin: No rashes noted, no lesions or wounds seen Psych: Flattened affect Objective Data Vital Signs Vital Signs: Vital Signs - 24 hr 12/28/22 12:00 12/28/22 12:00 12/28/22 12:00 Temperature 97.6 F Pulse Rate 48 L 48 L 48 L Respiratory Rate 12 12 Blood Pressure 138/76 Pulse Oximetry 100 100 Oxygen Delivery Room Air 12/28/22 14:00 12/28/22 16:00 12/28/22 16:00 Temperature 98.2 F Pulse Rate 47 L 45 L 45 L Respiratory
[2022-12-29] MEDS: APIXABAN 5 MG TABLET PO (16:41)
--- NOTE | 2022-12-29 18:03 | PC.NURSE ---
Discussed with Dr. Hernandez pt resided in an assisted living facility but has been total care since admission to this hospital. need to be feed, does not move her arms or legs, Discharge canceled and will get with case management and therapies and doctor to help pt with need post discharge.
[2022-12-30] VITALS (7 sets, daily range): BP systolic 120–134; BP diastolic 46–88; PULSE 43–54; RESP 13–18; TEMP 36.5–36.7; O2SAT 99–100; BMI 10.0
[2022-12-30 01:36] LABS: Vancomycin Trough 9.7 ug/mL (10.0-20.0)
[2022-12-30] MEDS: VANCOMYCIN 1,000 MG/NS 250 ML 1,000 MG/250 ML BAG 250 MG IVPB (02:46)
[2022-12-30 04:36] LABS: Estimated CRCL calculation 64 ml/min; Estimated Glomerular Filt Rate > 60
[2022-12-30] MEDS: DIVALPROEX SODIUM ER 500 MG TAB.24H 1000 MG PO (08:00)
[2022-12-30] MEDS: APIXABAN 5 MG TABLET PO ×2 (08:00→17:15)
[2022-12-30] MEDS: CHOLECALCIFEROL 1,000 UNITS TABLET 1000 UNITS PO ×2 (08:00→17:15)
[2022-12-30] MEDS: ESCITALOPRAM OXALATE 10 MG TABLET PO (08:00)
[2022-12-30] MEDS: levoFLOXacin 750 MG/D5W 150 ML 750 MG/150 ML BAG 100 MG IVPB (08:00)
[2022-12-30] MEDS: ACETAMINOPHEN 325 MG TABLET 650 MG PO (08:01)
--- NOTE | 2022-12-30 10:43 | PCSTNOTE ---
Please refer to the Bedside Swallow Evaluation in the EMR. Please note, silent aspiration cannot be ruled out at bedside.
--- NOTE | 2022-12-30 13:46 | PM.IMPN ---
Progress Note: A&P Assessment and Plan (1) Sepsis: Code(s): A41.9 - Sepsis, unspecified organism Status: Acute Assessment and Plan: Sepsis present on admission. Unsure of etiology, could be UTI versus biliary versus lung source Procalcitonin 0.3, CRP 7.5 Broad-spectrum antibiotics initiated with vanc, Levaquin, Flagyl 12/28 MRSA swab negative Urine culture negative Blood cultures no growth to date RUQ US more indicative of chronic cholecystitis. Suspect pna as source of sepsis. Stop vancomycin. Continue Levaquin but may adjust to oral agents so she may take her home medication. (2) Community acquired pneumonia: Qualifiers: Laterality: unspecified laterality Qualified Code(s): J18.9 - Pneumonia, unspecified organism Code(s): J18.9 - Pneumonia, unspecified organism Status: Acute Assessment and Plan: Patient probably has community-acquired pneumonia resulting in sepsis. Cannot exclude aspiration given her underlying neurologic disorders. Speech therapy evaluation recommended modified barium swallow which will proceed with. (3) Anemia: Code(s): D64.9 - Anemia, unspecified Status: Acute Assessment and Plan: Hemoglobin was 12.1 on admission but dropped to 9 range has been stable since. Will check baseline anemia lab work. (4) Thrombocytopenia: Code(s): D69.6 - Thrombocytopenia, unspecified Status: Acute Assessment and Plan: Patient is normal baseline platelet count. Platelets were 107K on admission dropped to 70K. Platelet count has improved. Continue to monitor. Check B12. (5) Chronic anticoagulation: Code(s): Z79.01 - [facility] (current) use of anticoagulants Status: Acute Assessment and Plan: Patient on long-term anticoagulation for history of PE. Continue Eliquis (6) Dementia: Code(s): F03.90 - Unspecified dementia, unspecified severity, without behavioral disturbance, psychotic disturbance, mood disturbance, and anxiety Status: Chronic Assessment and Plan: Patient has no dementia. Aricept and Namenda on hold because patient is on Levaquin. Consider adjusting to Augmentin with azithromycin to patient continue her other medications. Patient normally walks with a walker. Will start PT and OT. Okay to discharge when she is back to her baseline and can be accepted back to her facility. (7) Bipolar disorder: Code(s): F31.9 - Bipolar disorder, unspecified Status: Acute Assessment and Plan: Mood stable. continue home Lexapro Depakote, monitor Plan DVT prophylaxis with SCDs, gamaquis GI prophylaxis not indicated Code status full code Subjective Date/time seen: 12/30/22 13:46 Interval history: 72-year-old female with dementia, pulmonary embolism on anticoagulation, bipolar disorder, and depression who is being directly admitted to the IMU from the medical floor at an outside facility with hypotension, pneumonia, and UTI and possible cholecystitis. Assuming care. Chart reviewed. Patient states he feels tired. Denies chest pain. She was having a productive cough but denies shortness of breath. No nausea or vomiting. She has a poor appetite. Exam Narrative: AF 98.1 134/78 52 16 100% ra Gen - NARD Chest -left base inspiratory crackles. CV - regular, bradycardic. Telemetry showing occasional bradycardia Abd - Soft, NT/ND, Positive BS Ext - No pedal edema. 1+ DP pulses. Feet were cool to touch. She had 2nd cap refill Neuro -alert and oriented x3. She has masked facies. Cogwheeling in the upper extremities. Psych - Nml mood and affect Skin - Warm and dry Objective Data Vital Signs Vital Signs: Vital Signs - 24 hr 12/29/22 16:00 12/29/22 16:00 12/29/22 19:31 Temperature 97.2 F L Pulse Rate 52 L 44 L 45 L Respiratory Rate 12 12 Blood Pressure 141/88 H Pulse Oximetry 100 100 Oxygen Delivery Room Air
[2022-12-30] MEDS: MEMANTINE 5 MG TABLET PO (17:15)
[2022-12-30] MEDS: DONEPEZIL HCL 5 MG TABLET PO (20:00)
[2022-12-30 23:41] LABS: Pneumococcal Antigen Urine Not Detected (Not Detected)
[2022-12-31] VITALS (8 sets, daily range): BP systolic 124–130; BP diastolic 71–84; PULSE 43–65; RESP 16–18; TEMP 36.5–36.8; O2SAT 98–100
[2022-12-31 04:51] LABS: Hematocrit 33.8 % (37.0-47.0); Hemoglobin 11.1 g/dL (12.0-15.0); Immature Platelet Fraction Pct 1.9 % (0.9-11.2); Mean Corpuscular HGB Conc 32.8 g/dl (32-36); Mean Corpuscular Hemoglobin 32.3 pg (26-34); Mean Corpuscular Volume 98.3 fl (80-100); Mean Platelet Volume 9.1 fl (7.4-10.4); Platelet Count Result 102 k/mm3 (150-375); Red Blood Count 3.44 M/mm3 (4.2-5.4); Red Cell Distribution Width 14.1 % (11.5-14.5); White Blood Count 3.6 K/mm3 (4.5-10.0)
[2022-12-31 05:10] LABS: Anion Gap 4 mmol/L (8-16); Blood Urea Nitrogen 15 mg/dL (7-17); Calcium 9.3 mg/dL (8.4-10.2); Carbon Dioxide 31 mmol/L (22-30); Chloride 103 mmol/L (98-107); Estimated CRCL calculation 55 ml/min; Estimated Glomerular Filt Rate > 60; Glucose 87 mg/dL (65-110); Sodium 138 mmol/L (137-145)
[2022-12-31 05:13] LABS: Iron 169 ug/dL (37-170)
[2022-12-31 05:22] LABS: Percent Iron Saturation 84 % (20-50)
[2022-12-31 06:06] LABS: Folic Acid 4.5 ng/mL (2.76->20)
[2022-12-31] MEDS: MEMANTINE 5 MG TABLET PO (08:09)
[2022-12-31] MEDS: AMOXICILLIN/CLAVULANATE K 875-125 MG TAB 1 TABLET PO ×2 (08:09→20:09)
[2022-12-31] MEDS: AZITHROMYCIN 250 MG TABLET PO (08:09)
[2022-12-31] MEDS: ESCITALOPRAM OXALATE 10 MG TABLET PO (08:09)
[2022-12-31] MEDS: APIXABAN 5 MG TABLET PO ×2 (08:09→17:34)
[2022-12-31] MEDS: DIVALPROEX SODIUM ER 500 MG TAB.24H 1000 MG PO (08:09)
[2022-12-31] MEDS: ACETAMINOPHEN 325 MG TABLET 650 MG PO ×2 (08:09→20:09)
[2022-12-31] MEDS: CHOLECALCIFEROL 1,000 UNITS TABLET 1000 UNITS PO ×2 (08:09→17:34)
--- NOTE | 2022-12-31 10:59 | PCNFU ---
Nutrition Follow-Up Complete: Severe protein calorie malnutrition related to chronic loss of appetite, as evidenced by 10% weight loss/5 months; poor intake <75% needs >1 month; NFPE findings of moderate muscle wasting and fat loss; poorly healing deep tissue injury to coccyx Goal: Adequate PO intake at least 75% meals and supplements to support wound healing Maintain weight Pt current nutrition is Regular. Last recorded weight is 57.5 kg, stable. Bowel Motility:No BM reported. Labs Reviewed:Hct 33.8,Hgb 11.1 Meds Noted:Eliquis, Vit D Skin: Deep Tissue-coccyx Additional Notes: Patient had MBS on 12/30-recommending a regular diet. Intake for breakfast today 40% of german toast, rizo and drank Rip supplement. Patient is receiving Rip BID and Compact BID for additional kcal and protein needs. Agree with diet order. Monitor intakes, supplement tolerance, weights, labs, plan of care Follow up every 5 days
[2022-12-31 11:55] LABS: Mycoplasma IgM Antibody Titer 35 U/mL (<770)
--- NOTE | 2022-12-31 15:26 | PC.NURSE ---
This patient, Daphnie Montana, was transferred to [[facility] ] on 12/31/22 at 1526. Personal belongings sent with patient. Report given to [ Zaida]. Appropriate documentation sent with patient.
--- NOTE | 2022-12-31 15:48 | PM.IMPN ---
Progress Note: A&P Assessment and Plan (1) Sepsis: Code(s): A41.9 - Sepsis, unspecified organism Status: Acute Assessment and Plan: Sepsis present on admission. Etiology unclear: could be UTI versus biliary versus lung source Procalcitonin 0.3, CRP 7.5 CTA chest showing subsegmental dependent left upper lobe and left lower lobe consolidation. Broad-spectrum antibiotics initiated with vancomycin, Levaquin, Flagyl 12/28 MRSA swab negative Urine culture negative Blood cultures no growth to date RUQ US more indicative of chronic cholecystitis. Suspect pPNA as source of sepsis. Stop vancomycin. Levaquin changed to Augmentin and Azithro. Azithromycin stopped today. (2) Community acquired pneumonia: Qualifiers: Laterality: unspecified laterality Qualified Code(s): J18.9 - Pneumonia, unspecified organism Code(s): J18.9 - Pneumonia, unspecified organism Status: Acute Assessment and Plan: Patient probably has community-acquired pneumonia resulting in sepsis. Cannot exclude aspiration given her underlying neurologic disorders. Speech therapy bedside evaluation recommended modified barium swallow which showed patient could eat safely but Speech did recommend continued speech therapy. Continue abx as above. (3) Anemia: Code(s): D64.9 - Anemia, unspecified Status: Acute Assessment and Plan: Hemoglobin was 12.1 on admission but dropped to 9 range. Iron studies showing low TIBC with TSat 84%. Ferritin elevated at 440. B12/Folate normal. Hgb up to 11. She is not on iron at home. Follow (4) Thrombocytopenia: Code(s): D69.6 - Thrombocytopenia, unspecified Status: Acute Assessment and Plan: Patient is normal baseline platelet count. Platelets were 107K on admission dropped to 70K. B12 level okay. Platelet count is improving. Continue to monitor. (5) Chronic anticoagulation: Code(s): Z79.01 - terminal manager (current) use of anticoagulants Status: Acute Assessment and Plan: Patient on long-term anticoagulation for history of PE. Continue Eliquis (6) Dementia: Code(s): F03.90 - Unspecified dementia, unspecified severity, without behavioral disturbance, psychotic disturbance, mood disturbance, and anxiety Status: Chronic Assessment and Plan: Patient has hx of dementia. Aricept and Namenda was on hold because patient started on Levaquin. Abx changed to Augmentin with azithromycin and home meds resumed. Patient normally walks with a walker. PT and OT ordered. Okay to discharge when she is accepted back to her facility. (7) Bipolar disorder: Code(s): F31.9 - Bipolar disorder, unspecified Status: Acute Assessment and Plan: Mood stable. continue home Lexapro and Depakote. Monitor Check level Plan Leukopenia - WBC 3600 today. No diff. Will monitor for now. Only new med at this time is Augmentin. Follow DVT prophylaxis with SCDs, Eliquis GI prophylaxis not indicated Code status full code Subjective Date/time seen: 12/31/22 15:48 Interval history: 72-year-old female with dementia, pulmonary embolism on anticoagulation, bipolar disorder, and depression who is being directly admitted to the IMU from the medical floor at an outside facility with hypotension, pneumonia, and UTI and possible cholecystitis. Patient up to the chair. No CP or abd pain. She does feel SOB. Exam Narrative: AF 97.9 130/84 65 18 98% ra Gen - NARD Chest - CTA bilaterally CV - RRR. Telemetry showing no significant dysrhythmias Abd - Soft, NT/ND, Positive BS Ext - No pedal edema. Neuro -alert. speech is clear but slow. She has masked facies. Psych - Nml mood and affect Skin - Warm and dry Objective Data Vital Signs Vital Signs: Vital Signs - 24 hr 12/30/22 16:00 12/30/22 16:00 12/30/22 20:00 Temperature 98.1 F Pulse Rate 51 L 52 L Respirato
[2022-12-31] MEDS: DONEPEZIL HCL 5 MG TABLET PO (20:09)
[2023-01-01] VITALS (7 sets, daily range): BP systolic 103–133; BP diastolic 50–76; PULSE 48–58; RESP 16; TEMP 36.1–36.6; O2SAT 97–100
[2023-01-01 01:26] LABS: Legionella pneumophila Ag Ur Not Detected (Not Detected)
[2023-01-01] MEDS: ACETAMINOPHEN 325 MG TABLET 650 MG PO ×3 (04:48→18:00)
[2023-01-01 07:26] LABS: Anion Gap 1 mmol/L (8-16); Blood Urea Nitrogen 19 mg/dL (7-17); Calcium 8.8 mg/dL (8.4-10.2); Carbon Dioxide 33 mmol/L (22-30); Chloride 104 mmol/L (98-107); Estimated CRCL calculation 63 ml/min; Estimated Glomerular Filt Rate > 60; Glucose 72 mg/dL (65-110); Potassium 3.5 mmol/L (3.4-5.0); Sodium 138 mmol/L (137-145)
[2023-01-01 07:33] LABS: Basophils Percent Auto 0.3 % (0.2-1.2); Eosinophils Percent Auto 0.2 % (0-4.4); Hematocrit 32.6 % (37.0-47.0); Hemoglobin 10.6 g/dL (12.0-15.0); Immature Granulocyte Absolute 0.05 K/mm3 (0.00-0.031); Immature Granulocyte Percent A 0.8 % (0-0.5); Immature Platelet Fraction Pct 1.6 % (0.9-11.2); Lymphocytes Absolute Auto 1.42 K/mm3 (0.9-3.2); Lymphocytes Percent Auto 23.9 % (18.3-44.2); Mean Corpuscular HGB Conc 32.5 g/dl (32-36); Mean Corpuscular Hemoglobin 31.7 pg (26-34); Mean Corpuscular Volume 97.6 fl (80-100); Mean Platelet Volume 9.4 fl (7.4-10.4); Monocytes Absolute Auto 0.4 K/mm3 (0.1-0.6); Monocytes Percent Auto 7.1 % (2.6-8.5); Neutrophils Percent Auto 67.7 % (45.5-73.1); Platelet Count Result 102 k/mm3 (150-375); Red Blood Count 3.34 M/mm3 (4.2-5.4); Red Cell Distribution Width 14.2 % (11.5-14.5); White Blood Count 5.9 K/mm3 (4.5-10.0)
[2023-01-01] MEDS: AMOXICILLIN/CLAVULANATE K 875-125 MG TAB 1 TABLET PO ×2 (09:48→20:05)
[2023-01-01] MEDS: DIVALPROEX SODIUM ER 500 MG TAB.24H 1000 MG PO (09:48)
[2023-01-01] MEDS: MEMANTINE 5 MG TABLET PO (09:48)
[2023-01-01] MEDS: APIXABAN 5 MG TABLET PO ×2 (09:48→17:59)
[2023-01-01] MEDS: ESCITALOPRAM OXALATE 10 MG TABLET PO (09:48)
[2023-01-01] MEDS: CHOLECALCIFEROL 1,000 UNITS TABLET 1000 UNITS PO ×2 (09:48→18:00)
--- NOTE | 2023-01-01 12:01 | PM.IMPN ---
Progress Note: A&P Assessment and Plan (1) Sepsis: Code(s): A41.9 - Sepsis, unspecified organism Status: Acute Assessment and Plan: Sepsis present on admission. Etiology initially unclear but PNA Procalcitonin 0.3, CRP 7.5 CTA chest showing subsegmental dependent left upper lobe and left lower lobe consolidation. Broad-spectrum antibiotics initiated with vancomycin, Levaquin, Flagyl 12/28 MRSA swab negative Urine culture negative Blood cultures no growth to date RUQ US more indicative of chronic cholecystitis. Suspect PNA as source of sepsis. Vancomycin stopped. Levaquin changed to Augmentin and Azithro. Azithromycin completed. (2) Community acquired pneumonia: Qualifiers: Laterality: unspecified laterality Qualified Code(s): J18.9 - Pneumonia, unspecified organism Code(s): J18.9 - Pneumonia, unspecified organism Status: Acute Assessment and Plan: Influenza/COVID/RSV negative. Patient probably has community-acquired pneumonia resulting in sepsis. Could not exclude aspiration given her underlying neurologic disorders. Speech therapy bedside evaluation recommended modified barium swallow. MBS showed patient could eat safely but Speech did recommend continued speech therapy. Legionella and Pneumococcal Ag negative. Continue abx as above. (3) Anemia: Code(s): D64.9 - Anemia, unspecified Status: Acute Assessment and Plan: Hemoglobin was 12.1 on admission but dropped to 9 range. Iron studies showing normal iron, low TIBC with TSat 84%. Ferritin elevated at 440. B12/Folate normal. Hgb up to 10-11. She is not on iron at home. Follow (4) Thrombocytopenia: Code(s): D69.6 - Thrombocytopenia, unspecified Status: Acute Assessment and Plan: Patient is normal baseline platelet count. Platelets were 107K on admission dropped to 70K. B12 level okay. Platelet count better overall. Continue to monitor. (5) Chronic anticoagulation: Code(s): Z79.01 - terminal makeup operator (current) use of anticoagulants Status: Acute Assessment and Plan: Patient on long-term anticoagulation for history of PE and with hx of Factor V Leiden. Continue Eliquis (6) Dementia: Code(s): F03.90 - Unspecified dementia, unspecified severity, without behavioral disturbance, psychotic disturbance, mood disturbance, and anxiety Status: Chronic Assessment and Plan: Patient has hx of dementia. Aricept and Namenda was on hold because patient started on Levaquin. Abx changed to Augmentin with azithromycin and home meds resumed. Patient normally walks with a walker. PT and OT ordered. Okay to discharge when she is accepted at a facility. (7) Bipolar disorder: Code(s): F31.9 - Bipolar disorder, unspecified Status: Acute Assessment and Plan: Mood stable. continue home Lexapro and Depakote. VPA level 95 Monitor Plan Leukopenia - WBC normal now. Will monitor for now. Follow Torticollis (?) - patient with acute neck muscle spasm with inability to look beyond the midline to the left. PT working with patient. Consider botulism toxin injections or clonazepam if xray okay. Check c-spine with open mouth view DVT prophylaxis with SCDs, Eliquis GI prophylaxis not indicated Code status full code Subjective Date/time seen: 01/01/23 12:01 Interval history: 72-year-old female with dementia, pulmonary embolism on anticoagulation, bipolar disorder, and depression who is being directly admitted to the IMU from the medical floor at an outside facility with hypotension, pneumonia, and UTI and possible cholecystitis. Patient up to the chair. She is complaining of headache and neck pain. No CP or SOB. Exam Narrative: AF 97.0 126/70 55 16 97% ra Gen - NARD Neck - left torticollis. Able to move head to the midline. Chest - CTA bilaterally CV - RRR. Telemetry showing no significant dysrhythmias Ab
[2023-01-01] MEDS: DONEPEZIL HCL 5 MG TABLET PO (20:06)
[2023-01-02 05:34] VITALS: BP 117/61; PULSE 51; RESP 16; TEMP 36.1; O2SAT 97
[2023-01-02] MEDS: AMOXICILLIN/CLAVULANATE K 875-125 MG TAB 1 TABLET PO ×2 (10:28→20:32)
[2023-01-02] MEDS: APIXABAN 5 MG TABLET PO ×2 (10:29→17:19)
[2023-01-02] MEDS: CHOLECALCIFEROL 1,000 UNITS TABLET 1000 UNITS PO ×2 (10:29→17:19)
[2023-01-02] MEDS: ESCITALOPRAM OXALATE 10 MG TABLET PO (10:29)
[2023-01-02] MEDS: MEMANTINE 5 MG TABLET PO (10:29)
[2023-01-02] MEDS: DIVALPROEX SODIUM ER 500 MG TAB.24H 1000 MG PO (10:29)
--- NOTE | 2023-01-02 11:52 | PM.IMPN ---
Progress Note: A&P Assessment and Plan (1) Sepsis: Code(s): A41.9 - Sepsis, unspecified organism Status: Acute Assessment and Plan: Sepsis present on admission. Etiology initially unclear but felt to be PNA Procalcitonin 0.3, CRP 7.5. CTA chest showing subsegmental dependent left upper lobe and left lower lobe consolidation. Broad-spectrum antibiotics initiated with vancomycin, Levaquin, Flagyl 12/28 MRSA swab negative Urine culture negative Blood cultures no growth to date RUQ US more indicative of chronic cholecystitis. Suspect PNA as source of sepsis. Vancomycin stopped. Levaquin changed to Augmentin and Azithro. Azithromycin completed. Augmentin through today Waiting for placement (2) Community acquired pneumonia: Qualifiers: Laterality: unspecified laterality Qualified Code(s): J18.9 - Pneumonia, unspecified organism Code(s): J18.9 - Pneumonia, unspecified organism Status: Acute Assessment and Plan: Influenza/COVID/RSV negative. Patient probably has community-acquired pneumonia resulting in sepsis. Could not exclude aspiration given her underlying neurologic disorders. Speech therapy bedside evaluation recommended modified barium swallow. MBS showed patient could eat safely but Speech did recommend continued speech therapy. Legionella and Pneumococcal Ag negative. Continue abx as above. (3) Anemia: Code(s): D64.9 - Anemia, unspecified Status: Acute Assessment and Plan: Hemoglobin was 12.1 on admission but dropped to 9 range. Iron studies showing normal iron, low TIBC with TSat 84%. Ferritin elevated at 440. B12/Folate normal. Hgb stable in the 10-11 range. She is not on iron at home. Follow (4) Thrombocytopenia: Code(s): D69.6 - Thrombocytopenia, unspecified Status: Acute Assessment and Plan: Patient is normal baseline platelet count. Platelets were 107K on admission dropped to 70K. B12 level okay. Platelet count better overall. Continue to monitor. 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 Continue Eliquis (6) Dementia: Code(s): F03.90 - Unspecified dementia, unspecified severity, without behavioral disturbance, psychotic disturbance, mood disturbance, and anxiety Status: Chronic Assessment and Plan: Patient has hx of dementia. Aricept and Namenda was on hold because patient started on Levaquin. Abx changed to Augmentin with azithromycin and home meds resumed. Patient normally walks with a walker. PT and OT ordered. Okay to discharge when she is accepted at a facility. (7) Bipolar disorder: Code(s): F31.9 - Bipolar disorder, unspecified Status: Acute Assessment and Plan: Mood stable. VPA level 95 Continue home Lexapro and Depakote. Monitor Plan Leukopenia - WBC normal now. Will monitor periodically. Follow Torticollis (?) - patient with acute neck muscle spasm. C-spine xray with open mouth views showing severe cervical spondylosis. PT working with patient. DVT prophylaxis with SCDs, Eliquis GI prophylaxis not indicated Code status full code Subjective Date/time seen: 01/02/23 11:52 Interval history: 72-year-old female with dementia, pulmonary embolism on anticoagulation, bipolar disorder, and depression who is being directly admitted to the IMU from the medical floor at an outside facility with hypotension, pneumonia, and UTI and possible cholecystitis. No problems overnight. Has productive cough. No SOB or CP. Not eating much but no n/v. Exam Narrative: AF 97.0 117/61 51 16 97% ra Gen - NARD Neck - left torticollis. mobility improved. Chest - clear anterirolly bilaterally CV - regular with extra beats. Abd - Soft, NT/ND, Positive BS
[2023-01-02 14:05] VITALS: BP 104/60; PULSE 57; RESP 12; TEMP 36.8; O2SAT 93
[2023-01-02] MEDS: polyethylene glycoL 3350 17 GM POWD.PACK PO (15:51)
[2023-01-02] MEDS: ONDANSETRON INJ 4 MG/2 ML VIAL IV PUSH (15:53)
[2023-01-02] MEDS: BISACODYL 10 MG SUPPOSITORY RECTAL (15:55)
[2023-01-02 20:07] VITALS: BP 100/52; PULSE 55; RESP 18; TEMP 36.5; O2SAT 96
[2023-01-02] MEDS: DONEPEZIL HCL 5 MG TABLET PO (20:32)
[2023-01-03 04:27] VITALS: BP 112/76; PULSE 55; RESP 16; TEMP 36.6; O2SAT 94
--- NOTE | 2023-01-03 07:49 | PM.IMPN ---
Progress Note: A&P Assessment and Plan (1) Sepsis: Code(s): A41.9 - Sepsis, unspecified organism Status: Acute Assessment and Plan: Sepsis was present on admission. Etiology initially unclear but felt due to PNA. Procalcitonin 0.3, CRP 7.5. CTA chest showing subsegmental dependent left upper lobe and left lower lobe consolidation. Broad-spectrum antibiotics initiated with vancomycin, Levaquin and Flagyl. MRSA swab negative; Urine culture negative; Blood cultures no growth to date. RUQ US more indicative of chronic cholecystitis. Suspect PNA as source of sepsis. Vancomycin stopped. Levaquin changed to Augmentin and Azithromycin and she completed a course of antibiotics. Waiting for placement (2) Community acquired pneumonia: Qualifiers: Laterality: unspecified laterality Qualified Code(s): J18.9 - Pneumonia, unspecified organism Code(s): J18.9 - Pneumonia, unspecified organism Status: Acute Assessment and Plan: Influenza/COVID/RSV negative. Patient probably has community-acquired pneumonia resulting in sepsis. Could not exclude aspiration given her underlying neurologic disorders. Speech therapy bedside evaluation recommended modified barium swallow. MBS showed patient could eat safely but Speech did recommend continued speech therapy. Legionella and Pneumococcal Ag negative. As above. (3) Anemia: Code(s): D64.9 - Anemia, unspecified Status: Acute Assessment and Plan: Hemoglobin was 12.1 on admission but dropped to 9 range. Iron studies showing normal iron, low TIBC with TSat 84%. Ferritin elevated at 440. B12/Folate normal. Hgb stable in the 10-11 range. She is not on iron at home. Follow periodically (4) Thrombocytopenia: Code(s): D69.6 - Thrombocytopenia, unspecified Status: Acute Assessment and Plan: Patient is normal baseline platelet count. Platelets were 107K on admission dropped to 70K. B12 level okay. Platelet count better overall. Continue to monitor periodically. (5) Chronic anticoagulation: Code(s): Z79.01 - FDC (current) use of anticoagulants Status: Acute Assessment and Plan: Patient on long-term anticoagulation for history of PE and with hx of Factor V Leiden. Continue Eliquis (6) Dementia: Code(s): F03.90 - Unspecified dementia, unspecified severity, without behavioral disturbance, psychotic disturbance, mood disturbance, and anxiety Status: Chronic Assessment and Plan: Patient has hx of dementia. Aricept and Namenda was on hold because patient started on Levaquin. Abx changed to Augmentin with azithromycin and home meds resumed. Patient normally walks with a walker. PT and OT ordered. Patient with masked facies and bradykinesia. No tremor but with rigidity. Unclear if she has had rapid progression. Will start Sinemet and assess response (7) Bipolar disorder: Code(s): F31.9 - Bipolar disorder, unspecified Status: Acute Assessment and Plan: Mood stable. VPA level 95 Continue home Lexapro and Depakote. Monitor Plan Leukopenia - WBC normal now. Will monitor periodically. Follow Torticollis (?) - patient with acute neck muscle spasm. C-spine xray with open mouth views showing severe cervical spondylosis. PT working with patient. [place] more likely muscle spasm. Symptoms have resolved. DVT prophylaxis with SCDs, Eliquis GI prophylaxis not indicated Code status full code Subjective Date/time seen: 01/03/23 07:49 Interval history: 72-year-old female with dementia, pulmonary embolism on anticoagulation, bipolar disorder, and depression who is being directly admitted to the IMU from the medical floor at an outside facility with hypotension, pneumonia, and UTI and possible cholecystitis. No complaints. Slept well. Mostly oriented this morning. No CP or SOB. No hx of Parkinson. Neck pain resolved. Exam Narrativ
[2023-01-03] MEDS: polyethylene glycoL 3350 17 GM POWD.PACK PO (09:41)
[2023-01-03] MEDS: DIVALPROEX SODIUM ER 500 MG TAB.24H 1000 MG PO (09:42)
[2023-01-03] MEDS: CHOLECALCIFEROL 1,000 UNITS TABLET 1000 UNITS PO ×2 (09:43→16:57)
[2023-01-03] MEDS: ESCITALOPRAM OXALATE 10 MG TABLET PO (09:43)
[2023-01-03] MEDS: MEMANTINE 5 MG TABLET PO (09:43)
[2023-01-03] MEDS: BISACODYL 10 MG SUPPOSITORY RECTAL (09:43)
[2023-01-03] MEDS: APIXABAN 5 MG TABLET PO ×2 (09:43→16:56)
[2023-01-03] MEDS: CARBIDOPA/LEVODOPA 10/100 MG TABLET 1 TABLET PO ×3 (10:33→20:17)
[2023-01-03 14:54] VITALS: BP 101/60; PULSE 59; RESP 16; TEMP 36.9; O2SAT 99
[2023-01-03] MEDS: DONEPEZIL HCL 5 MG TABLET PO (20:17)
[2023-01-03 22:00] VITALS: BP 101/44; PULSE 53; RESP 14; TEMP 35.6; O2SAT 98
[2023-01-04] MEDS: CARBIDOPA/LEVODOPA 10/100 MG TABLET 1 TABLET PO ×2 (05:26→13:11)
[2023-01-04 06:00] VITALS: BP 110/57; PULSE 97; RESP 12; TEMP 35.7; O2SAT 91
[2023-01-04] MEDS: MEMANTINE 5 MG TABLET PO (09:31)
[2023-01-04] MEDS: APIXABAN 5 MG TABLET PO (09:31)
[2023-01-04] MEDS: DIVALPROEX SODIUM ER 500 MG TAB.24H 1000 MG PO (09:31)
[2023-01-04] MEDS: polyethylene glycoL 3350 17 GM POWD.PACK PO (09:31)
[2023-01-04] MEDS: CHOLECALCIFEROL 1,000 UNITS TABLET 1000 UNITS PO (09:31)
[2023-01-04] MEDS: ESCITALOPRAM OXALATE 10 MG TABLET PO (09:31)
[2023-01-04] MEDS: BISACODYL 10 MG SUPPOSITORY RECTAL (09:32)
--- NOTE | 2023-01-04 11:26 | PM.IMPN ---
Progress Note: A&P Assessment and Plan (1) Sepsis: Code(s): A41.9 - Sepsis, unspecified organism Status: Acute Assessment and Plan: Sepsis was present on admission. Etiology initially unclear but felt due to PNA. Procalcitonin 0.3, CRP 7.5. CTA chest showing subsegmental dependent left upper lobe and left lower lobe consolidation. Broad-spectrum antibiotics initiated with vancomycin, Levaquin and Flagyl. MRSA swab negative; Urine culture negative; Blood cultures no growth to date. RUQ US more indicative of chronic cholecystitis. Suspect PNA as source of sepsis. Vancomycin stopped. Levaquin changed to Augmentin and Azithromycin and she completed a course of antibiotics. Waiting for placement (2) Community acquired pneumonia: Qualifiers: Laterality: unspecified laterality Qualified Code(s): J18.9 - Pneumonia, unspecified organism Code(s): J18.9 - Pneumonia, unspecified organism Status: Acute Assessment and Plan: Influenza/COVID/RSV negative. Patient probably has community-acquired pneumonia resulting in sepsis. Could not exclude aspiration given her underlying neurologic disorders. Speech therapy bedside evaluation recommended modified barium swallow. MBS showed patient could eat safely but Speech did recommend continued speech therapy. Legionella and Pneumococcal Ag negative. As above. (3) Anemia: Code(s): D64.9 - Anemia, unspecified Status: Acute Assessment and Plan: Hemoglobin was 12.1 on admission but dropped to 9 range. Iron studies showing normal iron, low TIBC with TSat 84%. Ferritin elevated at 440. B12/Folate normal. Hgb stable in the 10-11 range. She is not on iron at home. Follow periodically (4) Thrombocytopenia: Code(s): D69.6 - Thrombocytopenia, unspecified Status: Acute Assessment and Plan: Patient is normal baseline platelet count. Platelets were 107K on admission dropped to 70K. B12 level okay. Platelet count better overall. Continue to monitor periodically. (5) Chronic anticoagulation: Code(s): Z79.01 - residential (current) use of anticoagulants Status: Acute Assessment and Plan: Patient on long-term anticoagulation for history of PE and with hx of Factor V Leiden. Continue Eliquis (6) Dementia: Code(s): F03.90 - Unspecified dementia, unspecified severity, without behavioral disturbance, psychotic disturbance, mood disturbance, and anxiety Status: Chronic Assessment and Plan: Patient has hx of dementia. Aricept and Namenda was on hold because patient started on Levaquin. Abx changed to Augmentin with azithromycin and home meds resumed. Patient normally walks with a walker. PT and OT ordered. Patient with masked facies and bradykinesia. No tremor but with rigidity. Unclear if she has had rapid progression. Mild improvement. Continue Sinemet and assess response (7) Bipolar disorder: Code(s): F31.9 - Bipolar disorder, unspecified Status: Acute Assessment and Plan: Mood stable. VPA level 95 Continue home Lexapro and Depakote. Monitor Plan Leukopenia - WBC normal now. Will monitor periodically. Follow Torticollis (?) - patient with acute neck muscle spasm. C-spine xray with open mouth views showing severe cervical spondylosis. PT working with patient. [place] more likely muscle spasm. Symptoms have resolved. DVT prophylaxis with SCDs, Eliquis GI prophylaxis not indicated Code status full code Subjective Date/time seen: 01/04/23 11:26 Interval history: 72-year-old female with dementia, pulmonary embolism on anticoagulation, bipolar disorder, and depression who is being directly admitted to the IMU from the medical floor at an outside facility with hypotension, pneumonia, and UTI and possible cholecystitis. No problems. No CP or SOB. Out of bed for meals. Exam Narrative: AF 96.2 110/57 97 12 91% ra Gen - AZAEL
--- NOTE | 2023-01-04 13:11 | PM.DS ---
DS: Admitting Diagnosis Discharge Date 01/04/23 Admitting Diagnosis Hypotension, UTI, pneumonia DS: Discharge Diagnosis Discharge Diagnosis (1) Sepsis: Code(s): A41.9 - Sepsis, unspecified organism Status: Acute (2) Community acquired pneumonia: Qualifiers: Laterality: unspecified laterality Qualified Code(s): J18.9 - Pneumonia, unspecified organism Code(s): J18.9 - Pneumonia, unspecified organism Status: Acute (3) Anemia: Code(s): D64.9 - Anemia, unspecified Status: Acute (4) Thrombocytopenia: Code(s): D69.6 - Thrombocytopenia, unspecified Status: Acute (5) Chronic anticoagulation: Code(s): Z79.01 - custodial (current) use of anticoagulants Status: Acute (6) Dementia: Code(s): F03.90 - Unspecified dementia, unspecified severity, without behavioral disturbance, psychotic disturbance, mood disturbance, and anxiety Status: Chronic (7) Bipolar disorder: Code(s): F31.9 - Bipolar disorder, unspecified Status: Acute DS: Summary Hospital Course Reason for hospitalization: 72-year-old female with dementia, pulmonary embolism on anticoagulation, bipolar disorder, and depression who is being directly admitted to the IMU from the medical floor at an outside facility with hypotension, pneumonia, and UTI and possible cholecystitis. Please see H&P for details. Hospital Course: Sepsis was present on admission.?Procalcitonin 0.3, CRP 7.5. CTA chest showing?subsegmental dependent left upper lobe and left lower lobe consolidation.?Broad-spectrum antibiotics initiated with vancomycin, Levaquin and Flagyl. MRSA swab negative; Urine culture negative; Blood cultures no growth to date. RUQ US more indicative of chronic cholecystitis. Influenza/COVID/RSV negative. Patient probably has community-acquired pneumonia resulting in sepsis.? Could not exclude aspiration given her underlying neurologic disorders so speech therapy performed MBS that showed patient could eat safely but Speech did recommend continued speech therapy. Legionella and Pneumococcal Ag negative. Vancomycin stopped.? Levaquin changed to Augmentin and Azithromycin and she completed a course of antibiotics. Hemoglobin was 12.1 on admission but dropped to 10-11 range. Iron studies showing normal iron, low TIBC with TSat 84%. Ferritin elevated at 440. B12/Folate normal. Patient with normal baseline platelet count.? Platelets were 107K on admission dropped to 70K.? B12 level okay. Platelet count improved. Thrombocytopenia related to divalproex? Patient on long-term anticoagulation for history of PE and with hx of Factor V Leiden.?We continued Eliquis here. Patient has hx of dementia.? Aricept and Namenda was on hold because patient started on Levaquin but resumed when abx adjusted. PT and OT ordered.?Patient with masked facies and bradykinesia. No tremor but with rigidity. Unclear if she has had rapid progression of her symptoms. Suspect related to the divalproex. Mood stable. VPA level 95. We continued home Lexapro and Depakote. Patient with acute neck muscle spasm. C-spine xray with open mouth views showing severe cervical spondylosis. PT worked with patient. [place] more likely muscle spasm. Symptoms have resolved. Patient overall did well and was able to be discharge home on 01/04/23. Status at Discharge Cognitive/behavioral status at discharge: Status Time Spent with Patient Time attestation: Total time spent providing and/or coordinating discharge services: 35 minutes Time spent: Greater than 30 minutes Exam Narrative: AF 96.2 110/57 97 12 91% ra Gen - NARD Chest - distant clear BS CV - RRR S1/S2 Abd - Soft, NT/ND, Positive BS Ext - No pedal edema. Neuro - alert, appropriate. speech more fluent Psych - Nml mood and affect Skin - Warm and dry Discharge Plan Discharge Attending physician on discharge: Guru Magaña Discharging Clinician: Glenroy Magaña
[2023-01-04 15:25] LABS: SARS-CoV-2 RNA PCR Negative (Negative)
== END 2023-01-04 16:36 ==
LOC: ANHICU 12-31 10:57 → ANH3MED 01-04 13:24 → ANHICU 01-05 09:20
PROVIDERS: Physician Assistant; Student in an Organized Health Care Education/Training Program; Admitting Provider Internal Medicine; PCP Family Medicine; Visit Provider Internal Medicine
DX: A41.9 Sepsis, unspecified organism (principal); J18.9 Pneumonia, unspecified organism; D64.9 Anemia, unspecified; D69.6 Thrombocytopenia, unspecified; F03.90 Unspecified dementia, unspecified severity, without behavioral disturbance, psychotic disturbance, mood disturbance, and anxiety; M47.812 Spondylosis without myelopathy or radiculopathy, cervical region; F31.9 Bipolar disorder, unspecified; K82.4 Cholesterolosis of gallbladder; R13.13 Dysphagia, pharyngeal phase; R63.0 Anorexia; D68.51 Activated protein C resistance; I10 Essential (primary) hypertension; Z86.711 Personal history of pulmonary embolism; Z68.21 Body mass index [BMI] 21.0-21.9, adult; Z79.01 Long term (current) use of anticoagulants; Z79.899 Other long term (current) drug therapy
CPT/HCPCS: 36415; 70450; 72040; 76705; 80048; 80053; 80164; 80202; 82565; 82607; 82728; 82746; 83540; 83550; 83605; 83735; 84145; 85025; 85027; 85055; 85610; 85730; 86140; 86738; 87081; 87449; 87635; 87899; 92507; 92526; 92610; 92611; 96365; 96366; 96367; 96375; 96376; 97110; 97162; 97166; 97530; A9270; G0378; G0379; J1836; J1956; J2405; J3370